=== PATIENT | female | born 2000 | race Caucasian/White ===

== ENCOUNTER 2019-02-01 02:11 | Emergency (ER) | payer BC ==
[2019-02-01] MEDS ORDERED: Famotidine IV* 10 MG/ML 2 ML (20 mg) ONE (02:16)
[2019-02-01] MEDS ORDERED: NS 0.9% 1000 ML** 2,000 ML IV ONE (02:18)
[2019-02-01] MEDS ORDERED: EPINEPHRINE 1 MG/ML 1 ML VIAL IM ONE (02:19)
[2019-02-01] MEDS ORDERED: Dexamethasone IV* 4 MG/ML 1 ML (4 MG) PO ONE (02:19)
[2019-02-01] MEDS ORDERED: diPHENhydraMINE IV* 50 MG/ML 1 ml VIAL (BENADRYL) SLOW PUSH ONE (02:19)
[2019-02-01] MEDS ORDERED: Famotidine IV* 10 MG/ML 2 ML (20 mg) IV SLOW PU ONE (02:20)
--- NOTE | 2019-02-01 02:33 | ED ---
Allergic Reaction/Systemic - HPI Summary HPI Summary: This pt is a 18 Y/O F presenting to [facility] with a CC of an allergic reaction to a drink with peaches in it. She states that she has an allergy to peaches and when she eats or drinks peaches her throat closes and she becomes SOB and lightheaded. She currently has pain associated with her throat tightening and rates it a 5/10 in severity. She states that the last time she had a reaction was years ago. She denies any fevers, chills, diaphoresis, abdominal pain, rashes, and N/V. She states no alleviating factors. She has a PMHx of an allergy to peaches. 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 Negative: Abdominal Pain, Diaphoresis, Nausea, Rash, Vomiting - Related Hx Possible Reaction To: Other: - peaches - Allergies/Home Medications Allergies/Adverse Reactions: Allergies Allergy/AdvReac Type Severity Reaction Status Date / Time zhou Allergy Anaphylatic Verified 02/01/19 02:32 Shock peach Allergy Anaphylatic Verified 02/01/19 02:32 Shock pineapple Allergy Anaphylatic Verified 02/01/19 02:32 Shock Home Medications: Home Medications SUMAtriptan TAB* [Imitrex TAB*] 50 mg PO DAILY PRN 02/01/19 [History Confirmed 02/01/19] PMH/Surg Hx/FS Hx/Imm Hx Previously Healthy: Yes Endocrine/Hematology History: Denies: Hx Diabetes Cardiovascular History: Denies: Hx Hypertension Respiratory History: Denies: Hx Asthma Sensory History: Denies: Hx Contacts or Glasses Opthamlomology History: Denies: Hx Contacts or Glasses - Surgical History Surgical History: None - Immunization History Immunizations Up to Date: Yes Infectious Disease History: No Infectious Disease History: Denies: Traveled Outside the [place] in Last 30 Days - Family History Known Family History: Positive: Cardiac Disease - Social History Occupation: Student - [employer] Lives: Dormitory/Roommates Alcohol Use: Occasionally Hx Substance Use: No - Pt states that she quit Substance Use Type: Reports: Marijuana Hx Tobacco Use: No Smoking Status (MU): Never Smoked Tobacco Household Exposure: No Review of Systems Negative: Fever, Chills, Skin Diaphoresis Negative: Chest Pain Positive: Shortness Of Breath, Other - throat tightening Negative: Abdominal Pain, Vomiting, Nausea Negative: Rash Negative: Headache All Other Systems Reviewed And Are Negative: Yes Physical Exam - Summary Physical Exam Summary: Appearance: Well-appearing, Well-nourished, lying in bed comfortably, No definite or ultimate stridor, repeatedly clearing her throat as if it is irritated Skin: Warm, dry, no obvious rash Eyes: sclera anicteric, no conjunctival pallor ENT: mucous membranes moist, pharynx appears normal Neck: Supple, nontender Respiratory: Clear to auscultation, no signs of respiratory distress Cardiovascular: Normal S1, S2. No murmurs. Normal distal pulses in tibial and radial bilaterally. Abdomen: Soft, nontender, normal active bowel sounds present Musculoskeletal: Normal, Strength/ROM Intact Neurological: A&Ox3, awake and alert, mentation is normal, speech is fluent and appropriate Psychiatric: affect is normal, does not appear anxious or depressed Triage Information Reviewed: Yes Vital Signs On Initial Exam: Initial Vitals Temp Pulse Resp BP Pulse Ox 97.5 F 106 20 124/89 100 02/01/19 02:14 02/01/19 02:14 02/01/19 02:14 02/01/19 02:14 02/01/19 02:14 Vital Signs Reviewed: Yes Diagnostics - Vital Signs Vital Signs Temp Pulse Resp BP Pulse Ox 02/01/19 02:14 97.5 F 106 20 124/89 100 - Laboratory Result Diagrams: 02/01/19 02:38 02/01/19 02:38 Lab Statement: Any lab studies that have been ordered have been reviewed, and results considered in the medical decision making process. Allergic Reaction Course/Dx - Course Course Of Treatment: This pt is a 18 Y/O F presenting to [facility] with a CC of an allergic reaction to a drink with peaches in it. She states that she has an allergy to peaches and when she eats or drinks peaches her throat closes and she becomes SOB and lightheaded. Her PE found that she has no definite or ultimate stridor, repeatedly clearing her throat as if it is irritated. She was treated for an allergic reaction and was given the following medications during her ED course: Decadron, Benadryl, Adrenalin, Pepcid, Potassium Chloride. Her Potassium was a 2.7 during her ED course. Pt reported feeling better and will be discharged home with a Dx of an allergic reaction. - Diagnoses Provider Diagnoses: Allergic reaction Discharge ED - Sign-Out/Discharge Documenting (check all that apply): Patient Departure - discharge Patient Received Moderate/Deep Sedation with Procedure: No - Discharge Plan Condition: Stable Disposition: HOME - Attestation Statements Document Initiated by Scribe: Yes Documenting Scribe: Garret Rodriguez Provider For Whom Scribe is Documenting (Include Credential): Ricardo Edwards MD Scribe Attestation: Garret Granados, scribed for Ricardo Edwards MD on 02/01/19 at 0446. Status of Scribe Document: Ready
[2019-02-01 02:49] LABS: Hematocrit 42 % (35-47); Hemoglobin 14.1 g/dL (12.0-16.0); Mean Corpuscular HGB Conc 33 g/dL (31-36); Mean Corpuscular Hemoglobin 29 pg (27-31); Mean Corpuscular Volume 86 fL (80-97); Mean Platelet Volume 8.6 fL (7.4-10.4); Platelet Count 293 10^3/uL (150-450); Red Blood Count 4.89 10^6 /uL (3.70-4.87); Red Cell Distribution Width 14 % (10-15); White Blood Count 12.6 10^3/uL (3.5-10.8)
[2019-02-01 03:05] LABS: BUN/Creatinine Ratio 19.3 (8-20); Blood Urea Nitrogen 17 mg/dL (6-24); CO2 Carbon Dioxide 23 mmol/L (22-32); Calcium 9.5 mg/dL (8.6-10.3); Chloride 108 mmol/L (101-111); EGFR African American 100.2 (>60); EGFR Non-African American 82.8 (>60); Glucose 176 mg/dL (70-100); Sodium 140 mmol/L (135-145)
[2019-02-01 03:07] LABS: ABS Basophils 0.1 10^3/ul (0-0.2); ABS Eosinophils 0.2 10^3/ul (0-0.6); ABS Lymphocytes 5.7 10^3/ul (1.0-4.8); ABS Monocytes 0.8 10^3/ul (0-0.8); ABS Neutrophils 5.9 10^3/ul (1.5-7.7); Anion Gap 9 mmol/L (2-11); Potassium 2.7 mmol/L (3.5-5.0)
[2019-02-01] MEDS ORDERED: Potassium Chlor TAB* 20 MEQ TAB.ER PO ONE (03:07)
[2019-02-01 03:13] LABS: HCG Pregnancy < 0.60 mIU/mL
[2019-02-01 03:34] LABS: Eosinophil % 1.2 %; Lymphocyte % 45.3 %; Nucleated Red Blood Cells % 0.1
[2019-02-01 05:20] VITALS: BP 142/89
== END 2019-02-01 05:17 | disposition home or self-care (01) ==
LOC: ED 02:11
DX: T78.1XXA Other adverse food reactions, not elsewhere classified, initial encounter (principal); R07.0 Pain in throat; Z91.018 Allergy to other foods; X58.XXXA Exposure to other specified factors, initial encounter
CPT/HCPCS: 36415; 80048; 84702; 85025; 85060; 96361; 96372; 96374; 96375; 99283; A9270-GY; J1100; J1200

== ENCOUNTER 2019-02-09 20:27 | Emergency (ER) | payer BC ==
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
[2019-02-09] MEDS ORDERED: Ondansetron ODT TAB* 4 MG PO ONE (21:28)
[2019-02-09] MEDS ORDERED: SUMAtriptan TAB* 100 MG PO ONE (21:28)
[2019-02-09 21:39] LABS: ABS Basophils 0.1 10^3/ul (0-0.2); ABS Lymphocytes 2.2 10^3/ul (1.0-4.8); ABS Monocytes 0.5 10^3/ul (0-0.8); ABS Neutrophils 4.7 10^3/ul (1.5-7.7); Eosinophil % 0.5 %; Hematocrit 44 % (35-47); Hemoglobin 14.9 g/dL (12.0-16.0); Lymphocyte % 29.2 %; Mean Corpuscular HGB Conc 34 g/dL (31-36); Mean Corpuscular Hemoglobin 30 pg (27-31); Mean Corpuscular Volume 86 fL (80-97); Mean Platelet Volume 7.7 fL (7.4-10.4); Nucleated Red Blood Cells % 0.1; Platelet Count 244 10^3/uL (150-450); Red Blood Count 5.06 10^6 /uL (3.70-4.87); Red Cell Distribution Width 14 % (10-15); White Blood Count 7.6 10^3/uL (3.5-10.8)
[2019-02-09 21:48] LABS: Urine Appearance Clear; Urine Bilirubin Negative (Negative); Urine Blood Negative (Negative); Urine Color Yellow; Urine Glucose Negative (Negative); Urine Ketones Trace (Negative); Urine Nitrite Negative (Negative); Urine Protein Negative (Negative); Urine Specific Gravity 1.025 (1.010-1.030); Urine Urobilinogen Negative (Negative)
[2019-02-09 21:52] LABS: Urine Benzodiazepine Screen None Detected (None Detect); Urine Opiates Screen None Detected (None Detect)
[2019-02-09 21:53] VITALS: BP 125/106
[2019-02-09 21:56] LABS: ALT 14 U/L (7-52); AST 17 U/L (13-39); Albumin/Globulin Ratio 1.9 (1-3); Alkaline Phosphatase 66 U/L (34-104); Anion Gap 8 mmol/L (2-11); BUN/Creatinine Ratio 18.8 (8-20); Blood Urea Nitrogen 15 mg/dL (6-24); CO2 Carbon Dioxide 28 mmol/L (22-32); Calcium 10.2 mg/dL (8.6-10.3); Chloride 104 mmol/L (101-111); EGFR African American 111.8 (>60); EGFR Non-African American 92.4 (>60); Globulin 2.6 g/dL (2-4); Glucose 83 mg/dL (70-100); Potassium 3.5 mmol/L (3.5-5.0); Sodium 140 mmol/L (135-145); Total Protein 7.6 g/dL (6.4-8.9)
[2019-02-09 22:04] LABS: HCG Pregnancy < 0.60 mIU/mL
[2019-02-09 22:08] LABS: Acetaminophen < 15 mcg/mL; Alcohol < 10 mg/dL (<10); Salicylate < 2.50 mg/dL (<30)
== END 2019-02-09 22:32 | disposition home or self-care (01) ==
LOC: ED 20:27
DX: F13.10 Sedative, hypnotic or anxiolytic abuse, uncomplicated (principal); R11.0 Nausea; F41.9 Anxiety disorder, unspecified; G43.909 Migraine, unspecified, not intractable, without status migrainosus; Z91.018 Allergy to other foods
CPT/HCPCS: 36415; 80053; 80307; 80320; 80329; 81003; 83605; 84702; 85025; 99284; A9270-GY; G0480

== ENCOUNTER 2019-02-16 18:06 | Emergency (ER) | payer BC ==
--- NOTE | 2019-02-16 20:06 | ED ---
Neurological HPI - HPI Summary HPI Summary: This patient is a 18 year old F presenting to ED with a chief complaint of seizure at 1700 today. Patient does not remember completely what happened. Patient felt alright prior to the episode and had not been feeling sick today. Patient was doing homework at a table. She states her music got lower in pitch and she felt everything change around her. She texted her friend who was upstairs, and then she woke up on the floor. Her friend Shad was next to her. He reports the seizure was self-limited. He describes she had a generalized tonic-clonic seizure lasting a couple of minutes. He reports she was confused afterwards, consistent with the post-ictal period. He made sure to lay her on her side and keep her airway clear and otherwise kept her safe during the seizure episode. After the episode, the patient had a headache, which is still present. Patient reports mild abdominal pain and nausea and tiredness. Patient s friend brought her to the ED. Patient reports she does not normally have seizures, but has these symptoms due to withdrawal from Xanax. Patient states she started taking Xanax in high school and reports getting it from her friend s prescription. She reports she used to take 1-2mg every other day. She states she was self-medicating for anxiety. Patient only had seizures when she tried to go cold turkey off the Xanax. Patient was seen here one week ago for a Xanax overdose and was told to see [facility]. Patient was prescribed Fluoxetine and Klonopin by [facility] on 02/11/19. She reports the medication made her slur her speech and tired. However, these symptoms improved throughout last week. She took the medications as prescribed until today as she forgot to take her Klonopin today. She last took Klonopin at 2000 last night. She does not remember the dosage. Her prescription runs out in two days and she has an appointment scheduled for [facility] then to check-up and refill. She reports her anxiety is under control and only has mild flares up every now and then. Patient does not want to tell her parents about this since she is worried they would be judgmental and kick her out of the house. The patient rates the pain 0/10 in severity. Symptoms aggravated by nothing. Symptoms alleviated by nothing. - History of Current Complaint Chief Complaint: EDSeizure Stated Complaint: POSSIBLE SEIZURE Time Seen by Provider: 02/16/19 19:53 Hx Obtained From: Patient, Other: - Friend Hx Last Menstrual Period: 01/24/19 Onset/Duration: Sudden Onset, Started hours ago - At 1700 today, Resolved Onset Severity: Mild Current Severity: Mild Seizure Severity: Self Limited Number of Seizures: 1 Neurological Deficit Location: Generalized Pain Intensity: 0 Pain Scale Used: 0-10 Numeric Seizure Character: Generalized, Total-Clonic Aggravating: Nothing Alleviating: Nothing Associated Signs and Symptoms: Positive: Headache, Seizure, Nausea/Vomiting, Change in Medication, Anxiety Related Hx: Seizure - Allergy/Home Medications Allergies/Adverse Reactions: Allergies Allergy/AdvReac Type Severity Reaction Status Date / Time zhou Allergy Anaphylatic Verified 02/16/19 18:12 Shock peach Allergy Anaphylatic Verified 02/16/19 18:12 Shock pineapple Allergy Anaphylatic Verified 02/16/19 18:12 Shock Home Medications: Home Medications FLUoxetine CAP* [Prozac CAP*] 10 mg PO DAILY 02/16/19 [History Confirmed ] clonazePAM TAB(*) [Klonopin TAB(*)] 0.5 mg PO BID 02/16/19 [History Confirmed ] PMH/Surg Hx/FS Hx/Imm Hx Previously Healthy: No Endocrine/Hematology History: Denies: Hx Diabetes Cardiovascular History: Denies: Hx Hypertension Respiratory History: Denies: Hx Asthma Sensory History: Denies: Hx Contacts or Glasses Opthamlomology History: Denies: Hx Contacts or Glasses Neurological History: Reports: Hx Migraine Psychiatric History: Reports: Hx Anxiety - not formally diagnosed or treated, but pt states she has anxiety , Other Psychiatric Issues/Disorders - hx cutting in past, last in 2018 Denies: Hx Eating Disorder, Hx of Violent Episodes Against Others - Surgical History Surgery Procedure, Year, and Place: none Infectious Disease History: No Infectious Disease History: Denies: Traveled Outside the [place] in Last 30 Days - Family History Known Family History: Positive: Cardiac Disease, Other - no hx of suicide in "blood relatives",but uncle "not blood related" - Social History Alcohol Use: Occasionally Hx Substance Use: Yes Substance Use Type: Reports: Marijuana, Other - xanax 02/08/19 at 1630pm Hx Tobacco Use: No Smoking Status (MU): Never Smoked Tobacco Review of Systems Positive: Abdominal Pain, Vomiting, Nausea Neurological: Other - Tiredness Positive: Headache All Other Systems Reviewed And Are Negative: Yes Physical Exam - Summary Physical Exam Summary: Appearance: Well-appearing, Well-nourished, lying in bed comfortable Skin: Warm, dry, no obvious rash Eyes: sclera anicteric, no conjunctival pallor ENT: mucous membranes moist Neck: deferred Respiratory: No signs of respiratory distress Cardiovascular: Appears well perfused, pulses are nml Abdomen: deferred Musculoskeletal: Moving all 4 extremities without obvious discomfort Neurological: Awake and alert, mentation is normal, speech is fluent and appropriate Psychiatric: affect is normal, does not appear anxious or depressed Triage Information Reviewed: Yes Vital Signs On Initial Exam: Initial Vitals Temp Pulse Resp BP Pulse Ox 97.9 F 80 16 121/78 96 02/16/19 18:08 02/16/19 18:08 02/16/19 18:08 02/16/19 18:08 02/16/19 18:08 Vital Signs Reviewed: Yes Procedures - Sedation Patient Received Moderate/Deep Sedation with Procedure: No Diagnostics - Vital Signs Vital Signs Temp Pulse Resp BP Pulse Ox 02/16/19 18:08 97.9 F 80 16 121/78 96 - Laboratory Lab Statement: Any lab studies that have been ordered have been reviewed, and results considered in the medical decision making process. Course/Dx - Course Course Of Treatment: This patient is a 18 year old F presenting to ED with a chief complaint of self-limited seizure at 1700 today. In the ED course, patient received Klonopin. I educated the patient on the importance of following her Klonopin prescription. Patient will be discharged home with dx of recurrent seizures. Patient understands and agrees with this plan. - Diagnoses Provider Diagnoses: Recurrent seizures Discharge ED - Sign-Out/Discharge Documenting (check all that apply): Patient Departure - Discharge - Discharge Plan Condition: Good Disposition: HOME Patient Education Materials: Recurrent Seizures in Adults (ED) [facility] Dennis FAJARD[facility] [Primary Care Provider] - (as scheduled) Additional Instructions: I have given you 1 mg of klonopin tonight, which is probably a bit more than you are taking. I would like you also to take your evening dose tonight before you turn in for the night. In the short run it's ok to have a little extra in your system. When you talk to the folks at [facility] make sure to tell them about what happened, I wouldn't be surprised if they suggest an increase in your dose for now since even missing 1 dose resulted in a seizure. You have to be very careful about this, and for sure you cannot drive until you are through all this. - Billing Disposition and Condition Condition: GOOD Disposition: Home - Attestation Statements Document Initiated by Brandonibe: Yes Documenting Scribe: Jose Garcia Provider For Whom Javy is Documenting (Include Credential): Ricardo Edwards MD Scribe Attestation: I, Jose Garcia, scribed for Ricardo Edwards MD on 02/24/19 at 0021. Scribe Documentation Reviewed: Yes Provider Attestation: The documentation as recorded by the Jose fitzpatrick accurately reflects the service I personally performed and the decisions made by me, Ricardo Edwards MD Status of Scribe Document: Viewed
[2019-02-16] MEDS ORDERED: clonazePAM TAB(*) 1 MG PO ONE (20:17)
[2019-02-16 20:39] VITALS: BP 99/64
== END 2019-02-16 20:35 | disposition home or self-care (01) ==
LOC: ED 18:06
DX: G40.909 Epilepsy, unspecified, not intractable, without status epilepticus (principal); R51 Headache; R10.9 Unspecified abdominal pain; R11.0 Nausea; R53.83 Other fatigue; Z91.018 Allergy to other foods
CPT/HCPCS: 99282; A9270-GY

== ENCOUNTER 2019-03-14 00:49 | Emergency (ER) | payer BC ==
[2019-03-14] MEDS ORDERED: levETIRAcetam 1000MG IVPREMIX* 1,000 MG/100 ML BAG IVPB ONE (01:03)
--- NOTE | 2019-03-14 01:06 | ED ---
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 During the first seizure, male friend states he heard a thumb, saw patient shaking semi violently on the ground for 2 minutes. Male java tech states he put a cushion under her head and turned her to her side. He states that patient lost consciousness for 2-3 minutes. He states patient propped herself against the wall, then 30 seconds later, had another seizure lasting 1 minute, then male java tech called EMS. EMS states that patient was slightly postictal upon EMS arrival to scene. Patient states she feels dizzy now. The patient rates the pain 8/10 in severity. Symptoms aggravated by nothing. Symptoms alleviated by nothing. Patient was seen here on 02/19/19 for similar. States she has been taking her medications daily as prescribed. States she takes clonazepam 0.5 mg, gabapentin 200 mg, and fluoxetine 40 mg. States she hasn't followed up with neurology yet. - History of Current Complaint Stated Complaint: SEIZURE PER EMS Time Seen by Provider: 03/14/19 00:55 Hx Obtained From: Patient, Family/Customer Professional - male java tech Onset/Duration: Started minutes ago, Resolved Timing: Intermittent Episodes Lasting: - 1-2 minutes Current Severity: Severe Pain Intensity: 8 Pain Scale Used: 0-10 Numeric Aggravating: Nothing Alleviating: Nothing - Allergy/Home Medications Allergies/Adverse Reactions: Allergies Allergy/AdvReac Type Severity Reaction Status Date / Time latex Allergy BURNING Verified 03/12/19 11:02 SENSATION zhou Allergy Anaphylatic Verified 03/12/19 11:02 Shock peach Allergy Anaphylatic Verified 03/12/19 11:02 Shock pineapple Allergy Anaphylatic Verified 03/12/19 11:02 Shock Home Medications: Home Medications Gabapentin 600 mg PO DAILY 03/14/19 [History Confirmed 03/14/19] PMH/Surg Hx/FS Hx/Imm Hx Endocrine/Hematology History: Denies: Hx Diabetes Cardiovascular History: Denies: Hx Hypertension, Hx Pacemaker/ICD Respiratory History: Denies: Hx Asthma History: Denies: Hx Renal Disease Sensory History: Denies: Hx Contacts or Glasses, Hx Hearing Aid Opthamlomology History: Denies: Hx Contacts or Glasses Neurological History: Reports: Hx Migraine Psychiatric History: Reports: Hx Anxiety - not formally diagnosed or treated, but pt states she has anxiety , Hx Panic Disorder - ANXIETY, Other Psychiatric Issues/Disorders - hx cutting in past, last in 2018 Denies: Hx Eating Disorder, Hx of Violent Episodes Against Others - Surgical History Surgery Procedure, Year, and Place: LAZY EYE SURGERY CHILD Infectious Disease History: No Infectious Disease History: Denies: Traveled Outside the [place] in Last 30 Days - Family History Known Family History: Positive: Cardiac Disease, Other - no hx of suicide in "blood relatives",but uncle "not blood related" - Social History Alcohol Use: Occasionally Hx Substance Use: Yes Substance Use Type: Reports: Marijuana, Other - xanax 02/08/19 at 1630pm Hx Tobacco Use: No Smoking Status (MU): Never Smoked Tobacco Review of Systems Negative: Fever Neurological: Other - seizure, dizziness All Other Systems Reviewed And Are Negative: Yes Physical Exam - Summary Physical Exam Summary: Appearance: Well-appearing, Well-nourished, lying in bed comfortable Skin: Warm, dry, no obvious rash Eyes: sclera anicteric, no conjunctival pallor ENT: mucous membranes moist Neck: deferred Respiratory: No signs of respiratory distress Cardiovascular: Appears well perfused, pulses are nml Abdomen: deferred Musculoskeletal: Moving all 4 extremities without obvious discomfort Neurological: Awake and alert, mentation is normal, speech is fluent and appropriate Psychiatric: affect is normal, does not appear anxious or depressed Triage Information Reviewed: Yes Vital Signs On Initial Exam: Initial Vitals Temp Pulse Resp BP Pulse Ox 99 F 70 17 111/70 98 03/14/19 00:51 03/14/19 00:51 03/14/19 00:51 03/14/19 00:51 03/14/19 00:51 Vital Signs Reviewed: Yes Procedures - Sedation Patient Received Moderate/Deep Sedation with Procedure: No Diagnostics - Vital Signs Vital Signs Temp Pulse Resp BP Pulse Ox 03/14/19 00:51 99 F 70 17 111/70 98 - Laboratory Result Diagrams: 03/14/19 01:09 03/14/19 01:09 Lab Statement: Any lab studies that have been ordered have been reviewed, and results considered in the medical decision making process. NIH Scale - NIH Scale Level of Consciousness: Alert/Keenly Responsive Ask Patient the Month and His/Her Age: Both Correct Ask Pt to Open/Close Eyes and Transit Mixer Driver/Release Non-Paretic Hand: Both Correctly Best Gaze (Only Horizontal Eye Movement): Normal Visual Field Testing: No Visual Loss Facial Paresis-Pt to Smile & Close Eyes or Grimace Symmetry: Normal/Symmetrical Motor Function - Right Arm: No Drift-Holds 10 Seconds Motor Function - Left Arm: No Drift-Holds 10 Seconds Motor Function - Right Leg: No Drift-Holds 10 Seconds Motor Function - Left Leg: No Drift-Holds 10 Seconds Limb Ataxia-Must be out of Proportion to Weakness Present: Absent Sensory (Use Pinprick to Test Arms/Legs/Trunk/Face): Normal Best Language (Describe Picture, Name Items): No Aphasia Dysarthria (Read Several Words): Normal Extinction and Inattention: No Abnormality Total Score: 0 Course/Dx - Course Course Of Treatment: 18 year old F brought in by EMS presenting to 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 EMS states that patient was slightly postictal upon EMS arrival to scene. Patient states she feels dizzy now. Patient was seen here on 02/19/19 for similar. States she has been taking her medications daily as prescribed. States she hasn't followed up with neurology yet. Bloodwork results with no significant abnormalities. Urinalysis results with no significant abnormalities. In the ED course, the patient was given Keppra. The last time I saw her the seizure coincided with abruptly stopping her klonopin, but the present seizure is unprovoked so I am starting her on Keppra until she can be seen by neurology. She will be discharged home with a Dx of Sz due to her normal PE and labratory results. She will be sent home with 60 tabs of Keppra and instructed to take the medication twice daily. - Diagnoses Provider Diagnoses: Seizure Discharge ED - Sign-Out/Discharge Documenting (check all that apply): Patient Departure - discharge - Discharge Plan Condition: Good Disposition: HOME Prescriptions: levETIRAcetam TAB* [Keppra TAB*] 500 mg PO BID #60 tab Patient Education Materials: New-Onset Seizure in Adults (ED) Referrals: Antonella Winters NP [Primary Care Provider] - 3 Days - Billing Disposition and Condition Condition: GOOD Disposition: Home - Attestation Statements Document Initiated by Scribe: Yes Documenting Scribe: Garret Butts Provider For Whom Scribe is Documenting (Include Credential): Ricardo Edwards MD Scribe Attestation: IAriana Marco DiSanto, scribed for Ricardo Edwards MD on 03/14/19 at 1904. Scribe Documentation Reviewed: Yes Provider Attestation: The documentation as recorded by the gustaboibshaheed, Garret Butts accurately reflects the service I personally performed and the decisions made by me, Ricardo Edwards MD Status of Scribe Document: Viewed
[2019-03-14 01:20] LABS: ABS Basophils 0.1 10^3/ul (0-0.2); ABS Lymphocytes 1.8 10^3/ul (1.0-4.8); ABS Monocytes 0.5 10^3/ul (0-0.8); ABS Neutrophils 4.4 10^3/ul (1.5-7.7); Eosinophil % 0.5 %; Hematocrit 37 % (35-47); Hemoglobin 12.6 g/dL (12.0-16.0); Lymphocyte % 26.5 %; Mean Corpuscular HGB Conc 34 g/dL (31-36); Mean Corpuscular Hemoglobin 29 pg (27-31); Mean Corpuscular Volume 85 fL (80-97); Mean Platelet Volume 7.4 fL (7.4-10.4); Nucleated Red Blood Cells % 0.1; Platelet Count 303 10^3/uL (150-450); Red Blood Count 4.33 10^6 /uL (3.70-4.87); Red Cell Distribution Width 14 % (10-15); White Blood Count 6.8 10^3/uL (3.5-10.8)
[2019-03-14 01:33] LABS: ALT 13 U/L (7-52); AST 17 U/L (13-39); Albumin 4.3 g/dL (3.2-5.2); Albumin/Globulin Ratio 1.5 (1-3); Alkaline Phosphatase 62 U/L (34-104); Anion Gap 6 mmol/L (2-11); BUN/Creatinine Ratio 22.1 (8-20); Blood Urea Nitrogen 21 mg/dL (6-24); CO2 Carbon Dioxide 30 mmol/L (22-32); Chloride 102 mmol/L (101-111); EGFR African American 91.7 (>60); EGFR Non-African American 75.8 (>60); Globulin 2.8 g/dL (2-4); Glucose 86 mg/dL (70-100); Potassium 3.9 mmol/L (3.5-5.0); Sodium 138 mmol/L (135-145); Total Protein 7.1 g/dL (6.4-8.9)
[2019-03-14 01:51] LABS: Urine Appearance Clear; Urine Bacteria Absent (Absent); Urine Bilirubin Negative (Negative); Urine Blood Negative (Negative); Urine Color Yellow; Urine Glucose Negative (Negative); Urine Ketones Trace (Negative); Urine Nitrite Negative (Negative); Urine Protein Negative (Negative); Urine Red Blood Cell Trace(0-2/hpf) (Absent); Urine Specific Gravity 1.021 (1.010-1.030); Urine Squamous Epithelial Cell Present (Absent); Urine Urobilinogen Negative (Negative); Urine White Blood Cell Trace(0-5/hpf) (Absent)
[2019-03-14 01:57] LABS: Alcohol < 10 mg/dL (<10)
[2019-03-14 01:59] LABS: Urine Benzodiazepine Screen None Detected (None Detect); Urine Opiates Screen None Detected (None Detect)
[2019-03-14 02:37] VITALS: BP 94/64
== END 2019-03-14 02:39 | disposition home or self-care (01) ==
LOC: ED 00:49
DX: G40.909 Epilepsy, unspecified, not intractable, without status epilepticus (principal); Z79.899 Other long term (current) drug therapy; Z91.040 Latex allergy status; Z91.018 Allergy to other foods
CPT/HCPCS: 36415; 80053; 80307; 80320; 81003; 81015; 85025; 87086; 96365; 99283; G0480; J1953

== ENCOUNTER 2019-03-14 13:36 | Emergency (ER) | payer BC ==
[2019-03-14 15:01] LABS: ABS Lymphocytes 1.1 10^3/ul (1.0-4.8); ABS Monocytes 0.4 10^3/ul (0-0.8); ABS Neutrophils 2.8 10^3/ul (1.5-7.7); Hematocrit 37 % (35-47); Hemoglobin 12.8 g/dL (12.0-16.0); Mean Corpuscular HGB Conc 34 g/dL (31-36); Mean Corpuscular Hemoglobin 29 pg (27-31); Mean Corpuscular Volume 86 fL (80-97); Mean Platelet Volume 7.7 fL (7.4-10.4); Platelet Count 287 10^3/uL (150-450); Red Blood Count 4.35 10^6 /uL (3.70-4.87); Red Cell Distribution Width 14 % (10-15); White Blood Count 4.3 10^3/uL (3.5-10.8)
[2019-03-14 15:10] LABS: ALT 13 U/L (7-52); AST 17 U/L (13-39); Albumin 4.2 g/dL (3.2-5.2); Albumin/Globulin Ratio 1.6 (1-3); Alkaline Phosphatase 59 U/L (34-104); Anion Gap 6 mmol/L (2-11); BUN/Creatinine Ratio 20.7 (8-20); Blood Urea Nitrogen 18 mg/dL (6-24); CO2 Carbon Dioxide 29 mmol/L (22-32); Calcium 9.7 mg/dL (8.6-10.3); Chloride 106 mmol/L (101-111); EGFR African American 101.5 (>60); EGFR Non-African American 83.9 (>60); Globulin 2.7 g/dL (2-4); Glucose 80 mg/dL (70-100); Potassium 3.8 mmol/L (3.5-5.0); Sodium 141 mmol/L (135-145); Total Protein 6.9 g/dL (6.4-8.9)
[2019-03-14] MEDS ORDERED: levETIRAcetam TAB* 500 MG PO ONE (15:13)
[2019-03-14 15:14] LABS: HCG Pregnancy < 0.60 mIU/mL
[2019-03-14 15:32] LABS: TSH (Thyroid Stimulating Horm) 0.73 mcIU/mL (0.34-5.60)
--- NOTE | 2019-03-14 17:39 | ED ---
Neurological HPI - HPI Summary HPI Summary: 18 year old female presents to the ED by EMS brought in by her teacher with a chief complaint of seizure episode during class [employer]. Patient had a seizure last night and presented to [facility] and was later discharged. Her teacher reports that she went to class today but right when she walked in and sat down, her whole body started trembling. The trembling got more and more severe, and then she slipped out of her chair and fell on the floor. The whole episode lasted 40 seconds. Per patient, the last thing she remembers before the episode was walking into the classroom. The first thing she remembered was waking up on the floor. Patient reports syncope. Afterwards, she felt dizziness, confusion, and weakness in her lower extremities bilaterally. She denies incontinence or tongue biting. She has a history of 8 seizures and anxiety. Patient does not smoke tobacco or drink alcohol. She smokes marijuana occasionally. Medications reviewed. Allergies noted. - History of Current Complaint Chief Complaint: EDSeizure Stated Complaint: SEIZURE PER EMS Time Seen by Provider: 03/14/19 13:56 Hx Obtained From: Patient, Other: - teacher Hx Last Menstrual Period: 01/24/19 Onset/Duration: Sudden Onset Timing: Sudden Onset Onset Severity: Moderate Current Severity: Moderate Seizure Severity: Moderate Number of Seizures: 1 Neurological Deficit Location: Generalized Pain Intensity: 8 Pain Scale Used: 0-10 Numeric Character: Weak, Dizzy, Motor Weakness, Sensory Loss, Responsiveness Syncope Timin sec Episode Lasting: Seconds/Minutes Syncope Context: Witnessed, Loss of Consciousness: Yes, Activity - tremble, At Rest Syncope Location: All Extremities Seizure Character: Generalized Aggravating: Unknown Alleviating: Unknown Associated Signs and Symptoms: Positive: Weakness, Loss of Consciousness, Dizziness, Seizure Related Hx: Seizure - 7x - Allergy/Home Medications Allergies/Adverse Reactions: Allergies Allergy/AdvReac Type Severity Reaction Status Date / Time latex Allergy BURNING Verified 03/12/19 11:02 SENSATION zhou Allergy Anaphylatic Verified 03/12/19 11:02 Shock peach Allergy Anaphylatic Verified 03/12/19 11:02 Shock pineapple Allergy Anaphylatic Verified 03/12/19 11:02 Shock Home Medications: Home Medications Potassium 99 mg PO DAILY 03/14/19 [History Confirmed 03/14/19] PMH/Surg Hx/FS Hx/Imm Hx Endocrine/Hematology History: Denies: Hx Diabetes Cardiovascular History: Denies: Hx Hypertension, Hx Pacemaker/ICD Respiratory History: Denies: Hx Asthma History: Denies: Hx Renal Disease Sensory History: Denies: Hx Contacts or Glasses, Hx Hearing Aid Opthamlomology History: Denies: Hx Contacts or Glasses Neurological History: Reports: Hx Migraine Psychiatric History: Reports: Hx Anxiety - not formally diagnosed or treated, but pt states she has anxiety , Hx Panic Disorder - ANXIETY, Other Psychiatric Issues/Disorders - hx cutting in past, last in 2018 Denies: Hx Eating Disorder, Hx of Violent Episodes Against Others - Surgical History Surgery Procedure, Year, and Place: LAZY EYE SURGERY CHILD - Immunization History Immunizations Up to Date: Yes Infectious Disease History: No Infectious Disease History: Denies: Traveled Outside the [place] in Last 30 Days - Family History Known Family History: Positive: Cardiac Disease, Other - no hx of suicide in "blood relatives",but uncle "not blood related" - Social History Alcohol Use: Occasionally Hx Substance Use: Yes Substance Use Type: Reports: Marijuana, Other Hx Tobacco Use: No Smoking Status (MU): Never Smoked Tobacco Review of Systems Negative: Fever ENT: Negative - tongue bite negative Negative: incontinence Neurological: Other - trembling full body Positive: Weakness - lower extremities, Syncope All Other Systems Reviewed And Are Negative: Yes Physical Exam - Summary Physical Exam Summary: Constitutional: Well-developed, Well-nourished, Drowsy. Answers questions appropriately. (-) Distressed. Skin: Warm, Dry HENT: Normocephalic; Atraumatic Eyes: Conjunctiva normal Neck: Musculoskeletal ROM normal neck. (-) JVD, (-) Stridor, (-) Tracheal deviation Cardio: Rhythm regular, rate normal, Heart sounds normal; Intact distal pulses; Radial pulses are 2+ and symmetric. (-) Murmur Pulmonary/Chest wall: Effort normal. (-) Respiratory distress, (-) Wheezes, (-) Rales Abd: Soft, (-) tenderness, (-) Distension, (-) Guarding, (-) Rebound Musculoskeletal: (-) Edema Lymph: (-) Cervical adenopathy Neuro: Alert, Oriented x3. Bilateral lower extremity weakness, but patients effort was questionable. Psych: Mood and affect Normal Triage Information Reviewed: Yes Vital Signs On Initial Exam: Initial Vitals Temp Pulse Resp BP Pulse Ox 98.2 F 71 16 112/68 99 11/01/19 13:38 03/14/19 13:38 03/14/19 13:38 03/14/19 13:38 03/14/19 13:38 Vital Signs Reviewed: Yes - [place] Coma Scale Best Eye Response: 4 - Spontaneous Best Motor Response: 6 - Obeys Commands Best Verbal Response: 5 - Oriented Coma Scale Total: 15 Procedures - Sedation Patient Received Moderate/Deep Sedation with Procedure: No Diagnostics - Vital Signs Vital Signs Temp Pulse Resp BP Pulse Ox 03/14/19 13:38 98.2 F 71 16 112/ 99 - Laboratory Lab Results: Lab Results 03/14/19 03/14/19 Range/Units 14:31 14:31 WBC 4.3 (3.5-10.8) 10^3/uL RBC 4.35 (3.70-4.87) 10^6 /uL Hgb 12.8 (12.0-16.0) g/dL Hct 37 (35-47) % MCV 86 (80-97) fL MCH 29 (27-31) pg MCHC 34 (31-36) g/dL RDW 14 (10-15) % Plt Count 287 (150-450) 10^3/uL MPV 7.7 (7.4-10.4) fL Neut % (Auto) 64.9 % Lymph % (Auto) 25.0 % Steele % (Auto) 8.2 % Eos % (Auto) 1.0 % Baso % (Auto) 0.9 % Absolute Neuts (auto) 2.8 (1.5-7.7) 10^3/ul Absolute Lymphs (auto) 1.1 (1.0-4.8) 10^3/ul Absolute Monos (auto) 0.4 (0-0.8) 10^3/ul Absolute Eos (auto) 0.0 (0-0.6) 10^3/ul Absolute Basos (auto) 0.0 (0-0.2) 10^3/ul Absolute Nucleated RBC 0.0 10^3/ul Nucleated RBC % 0.0 Sodium 141 (135-145) mmol/L Potassium 3.8 (3.5-5.0) mmol/L Chloride 106 (101-111) mmol/L Carbon Dioxide 29 (22-32) mmol/L Anion Gap 6 (2-11) mmol/L BUN 18 (6-24) mg/dL Creatinine 0.87 (0.51-0.95) mg/dL Est GFR ( Amer) 101.5 (>60) Est GFR (Non-Af Amer) 83.9 (>60) BUN/Creatinine Ratio 20.7 H (8-20) Glucose 80 (70-100) mg/dL Calcium 9.7 (8.6-10.3) mg/dL Total Bilirubin 0.40 (0.2-1.0) mg/dL AST 17 (13-39) U/L ALT 13 (7-52) U/L Alkaline Phosphatase 59 (34-104) U/L Total Protein 6.9 (6.4-8.9) g/dL Albumin 4.2 (3.2-5.2) g/dL Globulin 2.7 (2-4) g/dL Albumin/Globulin Ratio 1.6 (1-3) TSH 0.73 (0.34-5.60) mcIU/mL Beta HCG, Quant < 0.60 mIU/mL Result Diagrams: 03/14/19 14:31 03/14/19 14:31 Lab Statement: Any lab studies that have been ordered have been reviewed, and results considered in the medical decision making process. Re-Evaluation - Re-Evaluation 1 Re-Evaluation Time: 17:53 Change: Improved Comment: Patient is walking better. She was offered admission but declined it. She will buy a walker later. Course/Dx - Course Course Of Treatment: Patient is here with a seizure that occurred during class. Patient's had worse the past month and was seen last night. Patient was started on Keppra but did not fill her prescription. Patient had extremity weakness which is typical for her following a seizure. Patient had blood performed which was at her baseline. Neurology was called and they recommended continuing the Right at current dose. Patient is given a dose here. Patient was monitored until she was safe for discharge. Patient was offered admission for her difficulty walking but declined. - Diagnoses Provider Diagnoses: Seizure - Physician Notifications Discussed Care Of Patient With: Alejandro Shaver - Neuro Time Discussed With Above Provider: 13:50 Instructed by Provider To: Other - Continue keppra. Give to neurology for follow up. Discharge ED - Sign-Out/Discharge Documenting (check all that apply): Patient Departure - home - Discharge Plan Condition: Stable Disposition: HOME Patient Education Materials: Recurrent Seizures in Adults (ED) Referrals: Alejandro Shaver MD [Medical Doctor] - Antonella Winters NP [Primary Care Provider] - Additional Instructions: Please get your Keppra prescription filled today and started tonight Please return if you have slurred speech, one-sided weakness, change in vision, seizures that do not get better, or any other concerning symptoms Please follow up with the neurologist in 1-3 days - Billing Disposition and Condition Condition: STABLE Disposition: Home - Attestation Statements Document Initiated by Scribe: Yes Documenting Scribe: Kilo Fisher Provider For Whom Javy is Documenting (Include Credential): Obdulio Mazariegos MD. Scribe Attestation: Kilo Granados scribed for Obdulio Mazariegos MD. on 03/14/19 at 1828. Scribe Documentation Reviewed: Yes Provider Attestation: The documentation as recorded by the scribeKilo accurately reflects the service I personally performed and the decisions made by Obdulio gregory MD. Status of Scribe Document: Viewed
[2019-03-14 18:17] VITALS: BP 95/66
== END 2019-03-14 15:38 | disposition home or self-care (01) ==
LOC: ED 13:36
DX: R56.9 Unspecified convulsions (principal); Z91.040 Latex allergy status
CPT/HCPCS: 36415; 80053; 80177; 84443; 84702; 85025; 99283; A9270-GY

== ENCOUNTER 2019-03-17 14:43 | Emergency (ER) | payer BC ==
[2019-03-17 15:08] LABS: ABS Basophils 0.1 10^3/ul (0-0.2); ABS Lymphocytes 1.6 10^3/ul (1.0-4.8); ABS Monocytes 0.5 10^3/ul (0-0.8); ABS Neutrophils 3.8 10^3/ul (1.5-7.7); Eosinophil % 0.7 %; Hematocrit 38 % (35-47); Hemoglobin 12.6 g/dL (12.0-16.0); Lymphocyte % 26.6 %; Mean Corpuscular HGB Conc 33 g/dL (31-36); Mean Corpuscular Hemoglobin 29 pg (27-31); Mean Corpuscular Volume 87 fL (80-97); Mean Platelet Volume 7.7 fL (7.4-10.4); Nucleated Red Blood Cells % 0.1; Platelet Count 263 10^3/uL (150-450); Red Blood Count 4.41 10^6 /uL (3.70-4.87); Red Cell Distribution Width 15 % (10-15)
[2019-03-17 15:16] LABS: INR 1.15 (0.82-1.09)
[2019-03-17 15:48] LABS: Albumin 4.4 g/dL (3.2-5.2); Albumin/Globulin Ratio 1.6 (1-3); BUN/Creatinine Ratio 19.8 (8-20); Calcium 9.5 mg/dL (8.6-10.3); EGFR African American 102.9 (>60); Globulin 2.7 g/dL (2-4); Magnesium 2.1 mg/dL (1.9-2.7); Potassium 3.8 mmol/L (3.5-5.0); Total Bilirubin 0.3 mg/dL (0.2-1.0); Total Protein 7.1 g/dL (6.4-8.9)
--- NOTE | 2019-03-17 15:59 | ED ---
Neurological HPI - HPI Summary HPI Summary: Patient is a 18 y/o F presenting to the ED for a chief complaint of seizure that occurred on 03/17/19. 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 The seizure was witnessed by her professor and lasted for 3-4 minutes. Patient slid out of her chair while in class and was shaking. She was moved out of the chair by classmates and could not speak during the seizure. Patient admits seizures almost daily since the initial onset of seizure one month ago. Prior to this episode, patient last had a seizure on 03/15/19 for which she was seen at [facility]. Patient states that before a seizure, she has dizziness with a "room spinning" sensation. Patient reports that on 03/17/19, patient also felt "hot" before the seizure which she says in unusual. After a seizure, patient also feels bilateral LE weakness and pain. Patient also reports difficulty with urinary voiding for the last 2 weeks. Patient denies any fever, chills, erythema of eyes, sore throat, CP, SOB, cough, abdominal pain, N/V, dysuria, hematuria, urinary burning, myalgia, edema, or rash. Patient recently started Keppra 1000 mg daily on 03/15/19 and denies missing a dose. Patient also takes sumatriptan, gabapentin, and clonazepam. [facility] and has an appointment with Dr. Shaver on 03/18/19. Patient had an EEG on 03/12/19 with unremarkable findings and an MRI on 03/16/19 with unremarkable findings. Patient denies alcohol use or recent illness. 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 - History of Current Complaint Chief Complaint: EDSeizure Stated Complaint: SEIZURE Time Seen by Provider: 03/17/19 14:50 Hx Obtained From: Patient Hx Last Menstrual Period: 01/24/19 Onset/Duration: Sudden Onset, Resolved Timing: Sudden Onset Onset Severity: Moderate Current Severity: Moderate Seizure Severity: Moderate Pain Intensity: 0 Pain Scale Used: 0-10 Numeric Character: Room Spinning - Resolved, Dizzy - Resolved Episode Lasting: Seconds/Minutes - 3-4 min Syncope Context: Witnessed, At Rest Seizure Character: Generalized Aggravating: Nothing Alleviating: Nothing Associated Signs and Symptoms: Positive: Unsteady Gait - After seizure, Dizziness - Before seizure, Pain - Bilateral LE after seizure. Negative: Nausea /Vomiting, Fever, Recent Illness - Allergy/Home Medications Allergies/Adverse Reactions: Allergies Allergy/AdvReac Type Severity Reaction Status Date / Time latex Allergy BURNING Verified 03/12/19 11:02 SENSATION zhou Allergy Anaphylatic Verified 03/12/19 11:02 Shock peach Allergy Anaphylatic Verified 03/12/19 11:02 Shock pineapple Allergy Anaphylatic Verified 03/12/19 11:02 Shock Home Medications: Home Medications Gabapentin TAB(NF) [Neurontin 600 mg TAB(NF)] 600 mg PO DAILY 03/17/19 [History Confirmed 03/17/19] Potassium Gluconate 99 mg PO DAILY 03/17/19 [History Confirmed 03/17/19] levETIRAcetam TAB* [Keppra TAB*] 1,000 mg PO DAILY 03/17/19 [History Confirmed 03/17/19] PMH/Surg Hx/FS Hx/Imm Hx Previously Healthy: Yes Endocrine/Hematology History: Denies: Hx Diabetes Cardiovascular History: Denies: Hx Hypertension, Hx Pacemaker/ICD Respiratory History: Denies: Hx Asthma History: Denies: Hx Renal Disease Sensory History: Denies: Hx Contacts or Glasses, Hx Legally Blind, Hx Deafness, Hx Hearing Aid Opthamlomology History: Denies: Hx Contacts or Glasses, Hx Legally Blind EENT History: Denies: Hx Deafness Neurological History: Reports: Hx Migraine Psychiatric History: Reports: Hx Anxiety - not formally diagnosed or treated, but pt states she has anxiety , Hx Panic Disorder - ANXIETY, Other Psychiatric Issues/Disorders - hx cutting in past, last in 2018 Denies: Hx Eating Disorder, Hx of Violent Episodes Against Others - Surgical History Surgical History: Yes Surgery Procedure, Year, and Place: LAZY EYE SURGERY CHILD Infectious Disease History: No Infectious Disease History: Denies: Traveled Outside the [place] in Last 30 Days - Family History Known Family History: Positive: Cardiac Disease, Other - no hx of suicide in "blood relatives",but uncle "not blood related" - Social History Occupation: Student Lives: Alone Alcohol Use: Occasionally Hx Substance Use: Yes Substance Use Type: Reports: Marijuana Hx Tobacco Use: No Smoking Status (MU): Never Smoked Tobacco Review of Systems Positive: Other - Positive "hot" sensation before seizure. Negative: Fever, Chills Negative: Erythema Negative: Sore Throat Negative: Chest Pain Negative: Shortness Of Breath, Cough Negative: Abdominal Pain, Vomiting, Nausea Positive: other - Positive difficulty with urinary voiding. Negative: burning - Urinary, dysuria, hematuria Positive: Myalgia - Bilateral LE after seizure. Negative: Edema Negative: Rash Neurological: Other - Positive dizziness before seizure and "room spinning" sensation; seizure Positive: Weakness - Bilateral LE after seizure All Other Systems Reviewed And Are Negative: Yes Physical Exam - Summary Physical Exam Summary: Constitutional: Well-developed, Well-nourished, Alert. (-) Distressed Skin: Warm, Dry HENT: Normocephalic; Atraumatic Eyes: Conjunctiva normal Neck: Musculoskeletal ROM normal neck. (-) JVD, (-) Stridor, (-) Tracheal deviation Cardio: Rhythm regular, rate normal, Heart sounds normal; Intact distal pulses; The pedal pulses are 2+ and symmetric. Radial pulses are 2+ and symmetric. (-) Murmur Pulmonary/Chest wall: Effort normal. (-) Respiratory distress, (-) Wheezes, (-) Rales Abd: Soft, (-) tenderness, (-) Distension, (-) Guarding, (-) Rebound Musculoskeletal: (-) Edema Lymph: (-) Cervical adenopathy Neuro: Alert, Oriented x3 Psych: Mood and affect Normal Triage Information Reviewed: Yes Vital Signs On Initial Exam: Initial Vitals Temp Pulse Resp BP Pulse Ox 98.9 F 89 17 106/68 98 03/17/19 14:51 03/17/19 14:51 03/17/19 14:51 03/17/19 14:51 03/17/19 14:51 Vital Signs Reviewed: Yes Procedures - Sedation Patient Received Moderate/Deep Sedation with Procedure: No Diagnostics - Vital Signs Vital Signs Temp Pulse Resp BP Pulse Ox 03/17/19 15:29 77 118/68 95 03/17/19 15:00 74 100 03/17/19 14:58 74 106/69 100 03/17/19 14:53 97 03/17/19 14:51 98.9 F 89 17 106/68 98 - Laboratory Lab Results: Lab Results 03/17/19 03/17/19 03/17/19 Range/Units 15:03 15:03 15:03 WBC 6.0 (3.5-10.8) 10^3/uL RBC 4.41 (3.70-4.87) 10^6 /uL Hgb 12.6 (12.0-16.0) g/dL Hct 38 (35-47) % MCV 87 (80-97) fL MCH 29 (27-31) pg MCHC 33 (31-36) g/dL RDW 15 (10-15) % Plt Count 263 (150-450) 10^3/uL MPV 7.7 (7.4-10.4) fL Neut % (Auto) 63.8 % Lymph % (Auto) 26.6 % Vil[place] % (Auto) 7.7 % Eos % (Auto) 0.7 % Baso % (Auto) 1.2 % Absolute Neuts (auto) 3.8 (1.5-7.7) 10^3/ul Absolute Lymphs (auto) 1.6 (1.0-4.8) 10^3/ul Absolute Monos (auto) 0.5 (0-0.8) 10^3/ul Absolute Eos (auto) 0.0 (0-0.6) 10^3/ul Absolute Basos (auto) 0.1 (0-0.2) 10^3/ul Absolute Nucleated RBC 0.0 10^3/ul Nucleated RBC % 0.1 INR (Anticoag Therapy) 1.15 H (0.82-1.09) Sodium 140 (135-145) mmol/L Potassium 3.8 (3.5-5.0) mmol/L Chloride 105 (101-111) mmol/L Carbon Dioxide 29 (22-32) mmol/L Anion Gap 6 (2-11) mmol/L BUN 17 (6-24) mg/dL Creatinine 0.86 (0.51-0.95) mg/dL Est GFR ( Amer) 102.9 (>60) Est GFR (Non-Af Amer) 85.0 (>60) BUN/Creatinine Ratio 19.8 (8-20) Glucose 90 (70-100) mg/dL Lactic Acid (0.5-2.0) mmol/L Calcium 9.5 (8.6-10.3) mg/dL Magnesium 2.1 (1.9-2.7) mg/dL Total Bilirubin 0.30 (0.2-1.0) mg/dL AST 16 (13-39) U/L ALT 13 (7-52) U/L Alkaline Phosphatase 64 (34-104) U/L Total Protein 7.1 (6.4-8.9) g/dL Albumin 4.4 (3.2-5.2) g/dL Globulin 2.7 (2-4) g/dL Albumin/Globulin Ratio 1.6 (1-3) 03/17/19 Range/Units 15:03 WBC (3.5-10.8) 10^3/uL RBC (3.70-4.87) 10^6 /uL Hgb (12.0-16.0) g/dL Hct (35-47) % MCV (80-97) fL MCH (27-31) pg MCHC (31-36) g/dL RDW (10-15) % Plt Count (150-450) 10^3/uL MPV (7.4-10.4) fL Neut % (Auto) % Lymph % (Auto) % [place] % (Auto) % Eos % (Auto) % Baso % (Auto) % Absolute Neuts (auto) (1.5-7.7) 10^3/ul Absolute Lymphs (auto) (1.0-4.8) 10^3/ul Absolute Monos (auto) (0-0.8) 10^3/ul Absolute Eos (auto) (0-0.6) 10^3/ul Absolute Basos (auto) (0-0.2) 10^3/ul Absolute Nucleated RBC 10^3/ul Nucleated RBC % INR (Anticoag Therapy) (0.82-1.09) Sodium (135-145) mmol/L Potassium (3.5-5.0) mmol/L Chloride (101-111) mmol/L Carbon Dioxide (22-32) mmol/L Anion Gap (2-11) mmol/L BUN (6-24) mg/dL Creatinine (0.51-0.95) mg/dL Est GFR ( Amer) (>60) Est GFR (Non-Af Amer) (>60) BUN/Creatinine Ratio (8-20) Glucose (70-100) mg/dL Lactic Acid 1.8 (0.5-2.0) mmol/L Calcium (8.6-10.3) mg/dL Magnesium (1.9-2.7) mg/dL Total Bilirubin (0.2-1.0) mg/dL AST (13-39) U/L ALT (7-52) U/L Alkaline Phosphatase (34-104) U/L Total Protein (6.4-8.9) g/dL Albumin (3.2-5.2) g/dL Globulin (2-4) g/dL Albumin/Globulin Ratio (1-3) Result Diagrams: 03/17/19 15:03 03/17/19 15:03 Lab Statement: Any lab studies that have been ordered have been reviewed, and results considered in the medical decision making process. - EKG 15:17 Cardiac Rate: NL - 69 BPM EKG Rhythm: Sinus Rhythm ST Segment: Normal Ectopy: None Summary of EKG Findings: EKG at 15:17 reveals 69 BPM with normal sinus rhyhm, no STEMI. Reviewed and interpreted by ED physician. Course/Dx - Course Course Of Treatment: Patient is a 18 y/o F presenting to the ED for a chief complaint of seizure that occurred on 03/17/19. 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 The seizure was witnessed by her professor and lasted for 3- 4 minutes. Patient slid out of her chair while in class and was shaking. She was moved out of the chair by classmates and could not speak during the seizure. Patient admits seizures almost daily since the initial onset of seizure one month ago. Prior to this episode, patient last had a seizure on 07/02 for which she was seen at [facility]. Patient states that before a seizure, she has dizziness with a "room spinning" sensation. Patient reports that on 08/30, patient also felt "hot" before the seizure which she says in unusual. After a seizure, patient also feels bilateral LE weakness and pain. Patient also reports difficulty with urinary voiding for the last 2 weeks. Patient denies any fever, chills, erythema of eyes, sore throat, CP, SOB, cough, abdominal pain, N/V, dysuria, hematuria, urinary burning, myalgia, edema, or rash. Patient recently started Keppra 1000 mg daily on 03/15/19 and denies missing a dose. Patient also takes sumatriptan, gabapentin, and clonazepam. Patient [facility] Dr[facility] at [facility] and has an appointment with Dr. Shaver on 03/18/19. Patient had an EEG on 03/12/19 with unremarkable findings and an MRI on 03/16/19 with unremarkable findings. Patient denies alcohol use or recent illness. On exam, unremarkable findings. At 16:00, patient is smirking as she has an unsteady gait. Symptoms are preceded by dizziness, could be syncopal seizure or pseudo seizure. Reports leg pain after seizures, could be lactic acid buildup. In the ED course, patient was given Clonazapam 0.5 mg PO. Laboratory abnormal findings: INR 1.15, urine leukocyte 1+, urine squamous epith cells present, amorphous crystals present. EKG at 15:17 reveals 69 BPM with normal sinus rhyhm, no STEMI. Seen in room laughing, joking, and smiling. She is able to bear weight and walk, but her gait is awkward. Negative brain MRI with normal posterior circulation. Reviewing her medical records, she has a history of a mental health 941 visit. No medications changes at this time. Some features of syncope in the presentation. At 18:17, Dr. Gomez recommended discharge and to keep the appointment with Dr. Shaver which is more appropriate as her designated neurologist. Patient will be discharged with a diagnosis of loss of consciousness. Follow up with cardiology and Dr. Shaver. - Diagnoses Provider Diagnoses: Loss of consciousness - Physician Notifications Discussed Care Of Patient With: Vinh Gomez - At 18:17, Dr. Vinh Gomez recommended discharge and to keep the appointment with Dr. Shaver which is more appropriate as her designated neurologist. Time Discussed With Above Provider: 18:17 Instructed by Provider To: Admit As Inpatient Discharge ED - Sign-Out/Discharge Documenting (check all that apply): Patient Departure - Discharge - Discharge Plan Condition: Stable Disposition: HOME Patient Education Materials: Syncope (ED) Referrals: Antonella Winters NP [Primary Care Provider] - Bulmaro Light MD [Medical Doctor] - Alejandro Shaver MD [Medical Doctor] - Additional Instructions: Follow up with cardiology in one week and keep your appointment with Dr. Shaver. Return to the Emergency Department for worsening or changing symptoms. - Attestation Statements Document Initiated by Scribe: Yes Documenting Scribe: Nicci New Provider For Whom Scribe is Documenting (Include Credential): David Judd MD Scribe Attestation: I, Nicci New, scribed for David Judd MD on 03/17/19 at 1828. Status of Scribe Document: Ready
[2019-03-17] MEDS ORDERED: clonazePAM TAB(*) 0.5 MG PO ONE (16:17)
[2019-03-17 16:39] LABS: Urine Appearance Cloudy; Urine Bacteria Absent (Absent); Urine Bilirubin Negative (Negative); Urine Blood Negative (Negative); Urine Color Yellow; Urine Glucose Negative (Negative); Urine Ketones Negative (Negative); Urine Nitrite Negative (Negative); Urine Protein Negative (Negative); Urine Red Blood Cell Trace(0-2/hpf) (Absent); Urine Specific Gravity 1.019 (1.010-1.030); Urine Squamous Epithelial Cell Present (Absent); Urine Urobilinogen Negative (Negative); Urine White Blood Cell Trace(0-5/hpf) (Absent)
[2019-03-17 18:22] VITALS: BP 122/91
== END 2019-03-17 18:36 | disposition home or self-care (01) ==
LOC: ED 14:43
DX: R55 Syncope and collapse (principal); R26.81 Unsteadiness on feet; R39.198 Other difficulties with micturition; M79.10 Myalgia, unspecified site; R53.1 Weakness; Z91.040 Latex allergy status; Z91.018 Allergy to other foods
CPT/HCPCS: 36415; 80053; 80177; 81003; 81015; 83605; 83735; 85025; 85610; 87086; 93005; 99283; A9270-GY

== ENCOUNTER 2019-03-18 17:21 | Emergency (ER) | payer BC ==
--- OUTSIDE RECORDS SUMMARY | 2019-03-18 18:13 | XMS REPORT | Continuity of Care Document ---
:2000 External Reference #:[id number] Author Name Ferny Najera N.P. 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 1.5 tabs in pm Sumatriptan Succinate 1 tab twice a Unknown 100mg day max 2 days Tablets a week Fluoxetine HCL 1 by mouth Unknown 40mg every day Capsules Gabapentin 1 tab po qam Unknown 100mg Capsules and noon the 4 tabs po qpm Clonazepam 1/2 tab po bid Unknown 1mg Tablets Potassium OTC take one Unknown 99mg. capsule/tablet daily by mouth Immunizations Description No Information Available Vital Signs Date Vital Result Comment 03/18/2019 10:28am Height 66 inches 5'6" Weight 105.00 lb Heart Rate 80 /min BP Systolic Sitting 96 mmHg BP Diastolic Sitting 74 mmHg Respiratory Rate 15 /min BMI (Body Mass Index) 16.9 kg/m2 Height Percentile 75 % Weight Percentile 8th Procedures Description No Information Available Medical Devices Description No Information Available Encounters Description No Information Available Assessments Date Code Description Provider 03/18/2019 G40.89 Other seizures Ferny Najera N.P. 03/18/2019 G43.009 Migraine without aura, not intractable, Ferny Najera N.P. without status migrainosus 03/18/2019 F41.9 Anxiety disorder, unspecified Ferny Najera N.PJacques Plan of Treatment Future Appointment(s):04/15/2019 8:30 am - Ferny Najera N.Lev at [id number]/18/2019 - Ferny Najera N.PJacquesG40.89 Other seizuresNew Medication:Levetiracetam 500 mg - take 1 tablet by in am and 1.5 tabs in pmFollow up:2-4 [id number] Migraine without aura, not intractable, without status [id number] Anxiety disorder, unspecified Functional Status Description No Information Available Mental Status Description No Information Available Referrals Description No Information Available
[2019-03-18 18:27] LABS: ABS Lymphocytes 1.5 10^3/ul (1.0-4.8); ABS Monocytes 0.5 10^3/ul (0-0.8); ABS Neutrophils 3.2 10^3/ul (1.5-7.7); Eosinophil % 0.9 %; Hematocrit 36 % (35-47); Hemoglobin 12.4 g/dL (12.0-16.0); Lymphocyte % 28.4 %; Mean Corpuscular HGB Conc 34 g/dL (31-36); Mean Corpuscular Hemoglobin 30 pg (27-31); Mean Corpuscular Volume 86 fL (80-97); Mean Platelet Volume 7.9 fL (7.4-10.4); Nucleated Red Blood Cells % 0.2; Platelet Count 252 10^3/uL (150-450); Red Blood Count 4.19 10^6 /uL (3.70-4.87); Red Cell Distribution Width 15 % (10-15); White Blood Count 5.3 10^3/uL (3.5-10.8)
[2019-03-18 18:53] LABS: HCG Pregnancy < 0.60 mIU/mL
[2019-03-18 18:56] LABS: ALT 12 U/L (7-52); AST 17 U/L (13-39); Albumin 4.4 g/dL (3.2-5.2); Alkaline Phosphatase 65 U/L (34-104); Anion Gap 5 mmol/L (2-11); BUN/Creatinine Ratio 17.6 (8-20); Blood Urea Nitrogen 16 mg/dL (6-24); C Reactive Protein < 1.00 mg/L (<8.01); CO2 Carbon Dioxide 30 mmol/L (22-32); Calcium 9.7 mg/dL (8.6-10.3); Chloride 106 mmol/L (101-111); EGFR African American 96.4 (>60); EGFR Non-African American 79.6 (>60); Globulin 2.2 g/dL (2-4); Glucose 79 mg/dL (70-100); Magnesium 2.2 mg/dL (1.9-2.7); Potassium 3.7 mmol/L (3.5-5.0); Sodium 141 mmol/L (135-145); Total Protein 6.6 g/dL (6.4-8.9)
--- NOTE | 2019-03-18 19:01 | ED ---
Seizure - HPI Summary HPI Summary: Patient with history of new onset seizure starting 1 month ago complains of 2 witnessed seizures today. Patient has been seen here at this ED multiple times for same. Patient was started on Keppra 500 mg twice a day 3 days ago. Patient states she has been compliant with medication. Patient had normal EKG on 02/13/19. Normal MRI on 03/16/19. Patient was seen outpatient today at neurology, was advised to increase her nighttime Keppra dose to 1000 mg. Patient has pending MRI with contrast and pending 72 hour EEG. Post seizure activity today, patient complains of bilateral leg pain and weakness which is consistent with prior visits to ED for seizure. Patient states seizures are triggered by stress and anxiety. Denies fever, cough, sore throat, CP, SOB, N/V /V abdominal pain, change in urine, change in BM. Patient neurologist Dr. Gomez. - History Of Current Complaint Chief Complaint: EDSeizure Time Seen by Provider: 03/18/19 17:31 Hx Obtained From: Patient Onset/Duration: Sudden Onset Severity Of Seizure: Self-Limited Location Of Seizure: All Extremities Aggravating Factor(s): Nothing Alleviating Factor(s): Spontaneous Resolution Associated Signs And Symptoms: Negative - Allergies/Home Medications Allergies/Adverse Reactions: Allergies Allergy/AdvReac Type Severity Reaction Status Date / Time latex Allergy BURNING Verified 03/18/19 17:42 SENSATION zhou Allergy Anaphylatic Verified 03/18/19 17:42 Shock peach Allergy Anaphylatic Verified 03/18/19 17:42 Shock pineapple Allergy Anaphylatic Verified 03/18/19 17:42 Shock PMH/Surg Hx/FS Hx/Imm Hx Endocrine/Hematology History: Denies: Hx Diabetes Cardiovascular History: Denies: Hx Hypertension, Hx Pacemaker/ICD Respiratory History: Denies: Hx Asthma History: Denies: Hx Renal Disease Sensory History: Denies: Hx Contacts or Glasses, Hx Legally Blind, Hx Deafness, Hx Hearing Aid Opthamlomology History: Denies: Hx Contacts or Glasses, Hx Legally Blind EENT History: Denies: Hx Deafness Neurological History: Reports: Hx Migraine Psychiatric History: Reports: Hx Anxiety - not formally diagnosed or treated, but pt states she has anxiety , Hx Panic Disorder - ANXIETY, Other Psychiatric Issues/Disorders - hx cutting in past, last in 2017 Denies: Hx Eating Disorder, Hx of Violent Episodes Against Others - Surgical History Surgery Procedure, Year, and Place: LAZY EYE SURGERY CHILD - Immunization History Immunizations Up to Date: Yes Infectious Disease History: No Infectious Disease History: Denies: Traveled Outside the [place] in Last 30 Days - Family History Known Family History: Positive: Cardiac Disease, Other - no hx of suicide in "blood relatives",but uncle "not blood related" - Social History Alcohol Use: Occasionally Hx Substance Use: Yes Substance Use Type: Reports: Marijuana Hx Tobacco Use: No Smoking Status (MU): Never Smoked Tobacco Review of Systems Constitutional: Negative Eyes: Negative ENT: Negative Cardiovascular: Negative Respiratory: Negative Gastrointestinal: Negative Genitourinary: Negative Musculoskeletal: Other Skin: Negative Neurological: Negative Psychological: Normal All Other Systems Reviewed And Are Negative: Yes Physical Exam - Summary Physical Exam Summary: Patient has difficulty raising bilateral knees to chest independently, but is able to do so slowly. Physical exam otherwise unremarkable. Neuro exam unremarkable. Triage Information Reviewed: Yes Vital Signs On Initial Exam: Initial Vitals Temp Pulse Resp BP Pulse Ox 98.0 F 73 18 96/58 100 03/18/19 17:27 03/18/19 17:27 03/18/19 17:27 03/18/19 17:27 03/18/19 17:27 Vital Signs Reviewed: Yes Appearance: Positive: Well-Appearing Skin: Positive: Warm Head/Face: Positive: Normal Head/Face Inspection Eyes: Positive: Normal ENT: Positive: Normal ENT inspection Neck: Positive: Supple Respiratory/Lung Sounds: Positive: Clear to Auscultation Cardiovascular: Positive: Normal Abdomen Description: Positive: Nontender Musculoskeletal: Positive: Normal Neurological: Positive: Normal Psychiatric: Positive: Normal AVPU Assessment: Alert - [place] Coma Scale Best Eye Response: 4 - Spontaneous Best Motor Response: 6 - Obeys Commands Best Verbal Response: 5 - Oriented Coma Scale Total: 15 Procedures - Sedation Patient Received Moderate/Deep Sedation with Procedure: No Diagnostics - Vital Signs Vital Signs Temp Pulse Resp BP Pulse Ox 03/18/19 18:12 81 15 92/72 97 03/18/19 18:00 80 20 100 03/18/19 17:42 77 18 105/72 100 03/18/19 17:30 71 15 99 03/18/19 17:27 98.0 F 73 18 96/58 100 - Laboratory Lab Results: Lab Results 03/18/19 03/18/19 Range/Units 18:02 18:02 WBC 5.3 (3.5-10.8) 10^3/uL RBC 4.19 (3.70-4.87) 10^6 /uL Hgb 12.4 (12.0-16.0) g/dL Hct 36 (35-47) % MCV 86 (80-97) fL MCH 30 (27-31) pg MCHC 34 (31-36) g/dL RDW 15 (10-15) % Plt Count 252 (150-450) 10^3/uL MPV 7.9 (7.4-10.4) fL Neut % (Auto) 60.2 % Lymph % (Auto) 28.4 % [place] % (Auto) 9.6 % Eos % (Auto) 0.9 % Baso % (Auto) 0.9 % Absolute Neuts (auto) 3.2 (1.5-7.7) 10^3/ul Absolute Lymphs (auto) 1.5 (1.0-4.8) 10^3/ul Absolute Monos (auto) 0.5 (0-0.8) 10^3/ul Absolute Eos (auto) 0.0 (0-0.6) 10^3/ul Absolute Basos (auto) 0.0 (0-0.2) 10^3/ul Absolute Nucleated RBC 0.0 10^3/ul Nucleated RBC % 0.2 Sodium 141 (135-145) mmol/L Potassium 3.7 (3.5-5.0) mmol/L Chloride 106 (101-111) mmol/L Carbon Dioxide 30 (22-32) mmol/L Anion Gap 5 (2-11) mmol/L BUN 16 (6-24) mg/dL Creatinine 0.91 (0.51-0.95) mg/dL Est GFR ( Amer) 96.4 (>60) Est GFR (Non-Af Amer) 79.6 (>60) BUN/Creatinine Ratio 17.6 (8-20) Glucose 79 (70-100) mg/dL Calcium 9.7 (8.6-10.3) mg/dL Magnesium 2.2 (1.9-2.7) mg/dL Total Bilirubin 0.40 (0.2-1.0) mg/dL AST 17 (13-39) U/L ALT 12 (7-52) U/L Alkaline Phosphatase 65 (34-104) U/L C-Reactive Protein < 1.00 (<8.01) mg/L Total Protein 6.6 (6.4-8.9) g/dL Albumin 4.4 (3.2-5.2) g/dL Globulin 2.2 (2-4) g/dL Albumin/Globulin Ratio 2.0 (1-3) Beta HCG, Quant < 0.60 mIU/mL Result Diagrams: 03/18/19 18:02 03/18/19 18:02 Lab Statement: Any lab studies that have been ordered have been reviewed, and results considered in the medical decision making process. Course/Dx - Course Course Of Treatment: Patient with history of new onset seizure starting 1 month ago complains of 2 witnessed seizures today. Patient has been seen here at this ED multiple times for same. Patient was started on Keppra 500 mg twice a day 3 days ago. Patient states she has been compliant with medication. Patient had normal EKG on 02/13/19. Normal MRI on 03/16/19. Patient was seen outpatient today at neurology, was advised to increase her nighttime Keppra dose to 1000 mg. Patient has pending MRI with contrast and pending 72 hour EEG. Post seizure activity today, patient complains of bilateral leg pain and weakness which is consistent with prior visits to ED for seizure. Patient states seizures are triggered by stress and anxiety. Denies fever, cough, sore throat, CP, SOB, N/V/V abdominal pain, change in urine, change in BM. Patient neurologist Dr. Gomez. Vital signs within normal limits. Labs unremarkable. Discussed patient with neurologist stitch bonder machine operator helper Dr. Hannon who recommended continuing same a.m. Keppra dose of 500 mg, and increasing nighttime Keppra dose to 1000 milligrams in the p.m. Patient states she was advised to the same today by Bayron Edmonds PA at the neurology clinic. Patient has pending MRI with contrast and pending 72 hour EEG in 1 week. Patient independently ambulatory in the ED, though shaky while ambulating. Discharged to follow-up with neurology. - Diagnoses Provider Diagnoses: Seizure Discharge ED - Sign-Out/Discharge Documenting (check all that apply): Patient Departure - Discharge Plan Condition: Stable Disposition: HOME Patient Education Materials: Recurrent Seizures in Adults (ED) Referrals: Antonella Winters NP [Primary Care Provider] - Vinh Gomez MD [Medical Doctor] - Additional Instructions: Follow-up with neurology Dr Gomez for recurrent seizures. Increase Keppra dose. Take 500 mg in the a.m. and 1000mg in the p.m. Return to the ED for any new or worsening symptoms. - Billing Disposition and Condition Condition: STABLE Disposition: Home - Attestation Statements Provider Attestation: I was available for consult. This patient was seen by the KRYSTIN. The patient was not presented to, seen by, or examined by me. Obdulio Mazariegos MD
[2019-03-18 19:55] VITALS: BP 97/59
== END 2019-03-18 19:50 | disposition home or self-care (01) ==
LOC: ED 17:21
DX: R56.9 Unspecified convulsions (principal); M79.605 Pain in left leg; M79.604 Pain in right leg; R53.1 Weakness; Z91.040 Latex allergy status; Z91.018 Allergy to other foods
CPT/HCPCS: 36415; 80053; 83735; 84702; 85025; 86140; 93005; 99283

== ENCOUNTER 2019-03-19 11:14 | Emergency (ER) | payer BC ==
--- NOTE | 2019-03-19 11:25 | ED ---
Neurological HPI - HPI Summary HPI Summary: Pt is a 18 y/o F presenting to the ED brought in by EMS for a possible seizure. Per EMS, on their arrival pt was crying on the floor and could not stand up. Pt s friend told EMS that yesterdays possible seizure was more violent, but today it was localized in her chest. She was convinced by EMS to come to the ED, as she initially did not want to. She is on Keppra and Gabapentin. She reports pain in her legs. She denies LOC. Pt had normal MRI on 03/15/19 and normal EEG on 03/11/19. - History of Current Complaint Stated Complaint: POSS SEIZURE PER EMS Time Seen by Provider: 03/19/19 11:18 Hx Obtained From: Patient, EMS Hx Last Menstrual Period: 01/24/19 Onset/Duration: Sudden Onset, Started hours ago, Resolved Timing: Intermittent Episodes Lasting: - minutes Onset Severity: Mild Current Severity: None Seizure Severity: Mild Neurological Deficit Location: Generalized Character: Motor Weakness Syncope Context: Witnessed, Loss of Consciousness: No Seizure Character: Generalized Aggravating: Unknown Alleviating: Spontanious Resolution Associated Signs and Symptoms: Positive: Unsteady Gait, Seizure - Allergy/Home Medications Allergies/Adverse Reactions: Allergies Allergy/AdvReac Type Severity Reaction Status Date / Time latex Allergy BURNING Verified 03/18/19 17:42 SENSATION zhou Allergy Anaphylatic Verified 03/18/19 17:42 Shock peach Allergy Anaphylatic Verified 03/18/19 17:42 Shock pineapple Allergy Anaphylatic Verified 03/18/19 17:42 Shock Home Medications: Home Medications Gabapentin CAP(*) [Neurontin 400 mg CAP(*)] 400 mg PO BEDTIME 03/19/19 [History Confirmed 03/19/19] levETIRAcetam TAB* [Keppra TAB*] 1,000 mg PO QPM 03/19/19 [History Confirmed 10/30] PMH/Surg Hx/FS Hx/Imm Hx Previously Healthy: Yes Endocrine/Hematology History: Denies: Hx Diabetes Cardiovascular History: Denies: Hx Hypertension, Hx Pacemaker/ICD Respiratory History: Denies: Hx Asthma History: Denies: Hx Renal Disease Sensory History: Denies: Hx Contacts or Glasses, Hx Legally Blind, Hx Deafness, Hx Hearing Aid Opthamlomology History: Denies: Hx Contacts or Glasses, Hx Legally Blind Neurological History: Reports: Hx Migraine Psychiatric History: Reports: Hx Anxiety - not formally diagnosed or treated, but pt states she has anxiety , Hx Panic Disorder - ANXIETY, Other Psychiatric Issues/Disorders - hx cutting in past, last in 2018 Denies: Hx Eating Disorder, Hx of Violent Episodes Against Others - Surgical History Surgery Procedure, Year, and Place: [facility] E[facility] SURGERY [facility]ILD Infectious Disease History: Denies: Traveled Outside the [place] in Last 30 Days - Family History Known Family History: Positive: Cardiac Disease, Other - no hx of suicide in "blood relatives",but uncle "not blood related" Negative: Seizure Disorder - Social History Alcohol Use: Occasionally Hx Substance Use: Yes Substance Use Type: Reports: Marijuana Hx Tobacco Use: No Smoking Status (MU): Never Smoked Tobacco Review of Systems Positive: Myalgia - bilateral LE Neurological: Other - seizure Negative: Syncope All Other Systems Reviewed And Are Negative: Yes Physical Exam - Summary Physical Exam Summary: Constitutional: Well-developed, Well-nourished, Alert. (-) Distressed Skin: Warm, Dry HENT: Normocephalic; Atraumatic Eyes: Conjunctiva normal Neck: Musculoskeletal ROM normal neck. (-) JVD, (-) Nuchal rigidity Cardio: Rhythm regular, rate normal, Heart sounds normal; Intact distal pulses; Radial pulses are 2+ and symmetric. (-) Murmur Pulmonary/Chest wall: Effort normal. (-) Respiratory distress, (-) Wheezes, (-) Rales Abd: Soft. (-) Tenderness, (-) Distension, (-) Guarding, (-) Rebound Musculoskeletal: (-) Edema. Tenderness of the bilateral LE on palpation Lymph: (-) Cervical adenopathy Neuro: Alert, PERRL, Oriented x3, Strength normal, Cranial nerves II-XII are grossly intact. SILT, Strength 5/5 BUE and BLE, able to ambulate with assistance Psych: Mood and affect withdrawn Triage Information Reviewed: Yes Vital Signs Reviewed: Yes Procedures - Sedation Patient Received Moderate/Deep Sedation with Procedure: No Diagnostics - Laboratory Result Diagrams: 03/19/19 12:03 03/19/19 12:03 Lab Statement: Any lab studies that have been ordered have been reviewed, and results considered in the medical decision making process. Re-Evaluation - Re-Evaluation 1st re-eval Re-Evaluation Time: 13:46 Change: Unchanged Comment: Pt reports some knee pain on ambulation. Will give Toradol. Second Eval Re-Evaluation Time: 14:40 Change: Unchanged - patient still reporting pain in legs, is able to ambulate with assistance, states his baseline after her seizures, does not want to stay for further eval. Course/Dx - Course Course Of Treatment: 18-year-old female who presents with seizure-like episode. Patient's been seen multiple times in the ED the past week, labs unremarkable. Had medication increase last time she was here. Will discuss with neurology. Patient had normal MRI and EEG. Has follow-up with neurology outpatient - Diagnoses Provider Diagnoses: Seizure, Knee pain Discharge ED - Sign-Out/Discharge Documenting (check all that apply): Patient Departure - Discharge Plan Condition: Stable Disposition: HOME Patient Education Materials: Recurrent Seizures in Adults (ED) Referrals: Antonella Winters NP [Primary Care Provider] - Additional Instructions: You were seen in the emergency department for a seizure. Please follow-up with a neurologist. Please take a shower and do not take a bath, do not swim alone. Do not drive or operate machinery. Please continue taking medications as prescribed and follow-up with your doctor in the next 1-2 days. Please return to emergency department for continued seizures, weakness of her arms or legs, or if you're concerned - Billing Disposition and Condition Condition: STABLE Disposition: Home - Attestation Statements Document Initiated by Javy: Yes Documenting Scribe: Tri Thompson Provider For Whom Javy is Documenting (Include Credential): Shane Grimes MD. Scribe Attestation: ITri, scribed for Shane Grimes MD. on 03/19/19 at 2126. Scribe Documentation Reviewed: Yes Provider Attestation: The documentation as recorded by the Tri fitzpatrick accurately reflects the service I personally performed and the decisions made by , Shane Grimes MD. Status of Scribe Document: Viewed Consult Consult: 3029 - I spoke with Bayron Najera NP, who wants to check a CBK and a lactic. He already has outpatient plan set up for the pt.
[2019-03-19] MEDS ORDERED: NS 0.9% 1000 ML** 1,000 ML IV ONE (11:52)
[2019-03-19 12:11] LABS: ABS Basophils 0.1 10^3/ul (0-0.2); ABS Lymphocytes 1.2 10^3/ul (1.0-4.8); ABS Monocytes 0.4 10^3/ul (0-0.8); ABS Neutrophils 3.1 10^3/ul (1.5-7.7); Hematocrit 38 % (35-47); Hemoglobin 12.5 g/dL (12.0-16.0); Lymphocyte % 23.9 %; Mean Corpuscular HGB Conc 33 g/dL (31-36); Mean Corpuscular Hemoglobin 29 pg (27-31); Mean Corpuscular Volume 87 fL (80-97); Mean Platelet Volume 7.8 fL (7.4-10.4); Nucleated Red Blood Cells % 0.1; Platelet Count 230 10^3/uL (150-450); Red Blood Count 4.35 10^6 /uL (3.70-4.87); Red Cell Distribution Width 14 % (10-15); White Blood Count 4.8 10^3/uL (3.5-10.8)
[2019-03-19 12:33] LABS: Albumin 4.4 g/dL (3.2-5.2); Albumin/Globulin Ratio 1.8 (1-3); BUN/Creatinine Ratio 18.6 (8-20); Calcium 9.9 mg/dL (8.6-10.3); EGFR African American 89.5 (>60); Globulin 2.5 g/dL (2-4); Potassium 4.1 mmol/L (3.5-5.0); Total Bilirubin 0.5 mg/dL (0.2-1.0); Total Protein 6.9 g/dL (6.4-8.9)
[2019-03-19] MEDS ORDERED: Ketorolac INJ* 30 MG/ML 1 ML VIAL IV ONE (13:46)
[2019-03-19 14:53] VITALS: BP 99/62
== END 2019-03-19 14:52 | disposition home or self-care (01) ==
LOC: ED 11:14
DX: R56.9 Unspecified convulsions (principal); M25.569 Pain in unspecified knee; Z79.899 Other long term (current) drug therapy
CPT/HCPCS: 36415; 80053; 82550; 83605; 85025; 96361; 96374; 99283; J1885

== ENCOUNTER 2019-03-21 10:24 | Emergency (ER) | payer BC ==
--- NOTE | 2019-03-21 10:28 | ED ---
Neurological HPI - HPI Summary HPI Summary: 18 year old F brought in by [facility] to [facility] complains of one full body seizure lasting for 2 minutes at [facility] which happened minutes prior to arrival per EMS. Patient states that before her seizure today, she felt light headed, then "the mood of the room changed," and her right hand started shaking , and she had a seizure. No tongue biting or no urinary incontinence during seizure. No increased urine frequency recently. Reports increased urine urgency but little output. [facility] states that [facility] was already with patient when they arrived. Per [facility], [facility] reported that patient was in postictal phase when [facility] arrived to scene, and that patient was no longer in postictal phase after [facility] arrived. [facility] reports that patient was unable to ambulate to the stretcher herself, and needed help. Per [facility], patient complains of bilateral lower extremity weakness and pain. The patient rates the pain 7/10 in severity. Symptoms aggravated by nothing. Symptoms alleviated by nothing. Patient denies fever, chills, erythema of eyes, sore throat, chest pain, shortness of breath, cough, abdominal pain, nausea/ vomiting, dysuria, hematuria, myalgia, edema, rash, or dizziness. [facility] reports NSR on the monitor, BG 81, and that patient hasn't eaten anything yet today. Patient has been to the ED multiple times in the last week after having seizures. Per EMS, patient states that after she has been discharged, she has not been able to walk well. Patient states she has been taking her Keppra as prescribed, 500 mg AM 1000 mg PM. No alcohol. Patient states she had follow up appointment with Bayron Najera, neurology [employer], on Sunday 03/18, and plans to have an MRI with contrast done. - History of Current Complaint Stated Complaint: SEIZURE Hx Obtained From: Patient, EMS Onset/Duration: Started minutes ago, Resolved Pain Intensity: 7 Pain Scale Used: 0-10 Numeric Aggravating: Nothing Alleviating: Nothing Associated Signs and Symptoms: Positive: Negative - fever, chills, erythema of eyes, sore throat, cheset pain, shortness of breath,, cough, abdominal pain, nausea/vomiting, dysuria, hematuria, myalgia, edema, rash, or dizziness, Weakness - BLE, Pain - BLE - Allergy/Home Medications Allergies/Adverse Reactions: Allergies Allergy/AdvReac Type Severity Reaction Status Date / Time latex Allergy BURNING Verified 03/18/19 17:42 SENSATION zhou Allergy Anaphylatic Verified 03/18/19 17:42 Shock peach Allergy Anaphylatic Verified 03/18/19 17:42 Shock pineapple Allergy Anaphylatic Verified 03/18/19 17:42 Shock PMH/Surg Hx/FS Hx/Imm Hx Endocrine/Hematology History: Denies: Hx Diabetes Cardiovascular History: Denies: Hx Hypertension Respiratory History: Denies: Hx Asthma Sensory History: Denies: Hx Contacts or Glasses, Hx Legally Blind, Hx Deafness, Hx Hearing Aid Opthamlomology History: Denies: Hx Contacts or Glasses, Hx Legally Blind Neurological History: Reports: Hx Migraine Psychiatric History: Reports: Hx Anxiety - not formally diagnosed or treated, but pt states she has anxiety , Hx Panic Disorder - ANXIETY, Other Psychiatric Issues/Disorders - hx cutting in past, last in 2018 Denies: Hx Eating Disorder, Hx of Violent Episodes Against Others - Surgical History Surgery Procedure, Year, and Place: LAZY EYE SURGERY CHILD - Family History Known Family History: Positive: Cardiac Disease, Other - no hx of suicide in "blood relatives",but uncle "not blood related" Negative: Seizure Disorder - Social History Alcohol Use: Occasionally Hx Substance Use: Yes Substance Use Type: Reports: Marijuana Hx Tobacco Use: No Smoking Status (MU): Never Smoked Tobacco Review of Systems Negative: Fever, Chills Negative: Erythema Negative: Sore Throat Negative: Chest Pain Negative: Shortness Of Breath, Cough Negative: Abdominal Pain, Vomiting, Nausea Positive: urgency, other - little urine output. Negative: dysuria, frequency, hematuria, incontinence Positive: Other - BLE pain. Negative: Myalgia, Edema Negative: Rash Neurological: Negative - Dizziness, tongue biting, Other - seizure Positive: Weakness - BLE All Other Systems Reviewed And Are Negative: Yes Physical Exam - Summary Physical Exam Summary: Constitutional: Well-developed, Well-nourished, Alert. (-) Distressed Skin: Warm, Dry HENT: Normocephalic; Atraumatic Eyes: Conjunctiva normal Neck: Musculoskeletal ROM normal neck. (-) JVD, (-) Stridor, (-) Tracheal deviation Cardio: Rhythm regular, rate normal, Heart sounds normal; Intact distal pulses; The pedal pulses are 2+ and symmetric. Radial pulses are 2+ and symmetric. (-) Murmur Pulmonary/Chest wall: Effort normal. (-) Respiratory distress, (-) Wheezes, (-) Rales Abd: Soft, (-) tenderness, (-) Distension, (-) Guarding, (-) Rebound Musculoskeletal: (-) Edema Lymph: (-) Cervical adenopathy Neuro: Alert, Oriented x3 Psych: Mood and affect Normal Triage Information Reviewed: Yes Vital Signs Reviewed: Yes Procedures - Sedation Patient Received Moderate/Deep Sedation with Procedure: No Diagnostics - Laboratory Result Diagrams: 03/21/19 11:07 03/21/19 11:07 Lab Statement: Any lab studies that have been ordered have been reviewed, and results considered in the medical decision making process. - EKG 1043 Cardiac Rate: NL - 61 BPM EKG Rhythm: Sinus Rhythm Re-Evaluation - Re-Evaluation First Eval Re-Evaluation Time: 11:58 Change: Unchanged Comment: patient states she has a walker but it hasn't been helping. patient agrees to neuro consult and admission Course/Dx - Course Course Of Treatment: 18 year old F brought in by [facility] to [facility] complains of one full body seizure lasting for 2 minutes which happened minutes prior to arrival, bilateral lower extremity weakness and pain per EMS. Patient states she felt light headed and shakey before her seizure. No tongue biting or urinary incontinence during seizure. Patient arrives to ED in post postictal phase. Patient has been to the ED multiple times in the last week after having seizures. She has been having bilateral lower extremity weakness and pain after her seizures. Reviewed medical record from ED visit on Sunday03/17/19. Patient states she has been taking her Keppra as prescribed, 500 mg AM 1000 mg PM. Patient states she had follow up appointment with Bayron Najera, neurology [employer], on Sunday 03/18, and plans to have an MRI with contrast done. Physical exam findings: unremarkable. Bloodwork results with no significant abnormalities except for INR 1.14. An EKG shows NSR [address] Hannon, neurology. He recommends d/c patient and increasing Keppra to 1000 mg BID and states patient has video EEG scheduled for next Wednesday 03/28. Patient will be discharged home with prescription for Keppra 1000 mg BID PO and follow up from her neurologist at her scheduled appointment on 03/28. Patient was instructed to return to Emergency Department for new or worsening symptoms. Patient understands and is agreeable to this plan - Diagnoses Provider Diagnoses: LOC (loss of consciousness) - Physician Notifications Discussed Care Of Patient With: Giovanni Hannon Time Discussed With Above Provider: 12:05 Instructed by Provider To: Other - Dr. Hannon, neurology, agrees to consult. Dr. Hannon recommends d/c and increasing Keppra to 1000 mg BID and states patient has video EEG scheduled for next Wednesday 03/28. Discharge ED - Sign-Out/Discharge Documenting (check all that apply): Patient Departure - Discharge - Discharge Plan Condition: Stable Disposition: HOME Prescriptions: levETIRAcetam TAB* [Keppra TAB*] 1,000 mg PO BID #40 tab Patient Education Materials: Lightheadedness (ED) Referrals: Antonella Winters NP [Primary Care Provider] - Bayron Najera [Nurse Practitioner] - 03/28/19 Additional Instructions: Continue taking Keppra. Follow up with your neurologist at your scheduled appointment on 03/28/19. Return to the Emergency Department for changing or worsening symptoms. - Attestation Statements Document Initiated by Scribe: Yes Documenting Scribe: Ariana Cheng Provider For Whom Scribe is Documenting (Include Credential): David Judd MD Scribe Attestation: Ariana Granados, scribed for David Judd MD on 03/21/19 at 1359. Status of Scribe Document: Ready
[2019-03-21 11:16] LABS: ABS Lymphocytes 1.1 10^3/ul (1.0-4.8); ABS Monocytes 0.3 10^3/ul (0-0.8); ABS Neutrophils 2.9 10^3/ul (1.5-7.7); Eosinophil % 1.1 %; Hematocrit 38 % (35-47); Hemoglobin 12.7 g/dL (12.0-16.0); Lymphocyte % 25.6 %; Mean Corpuscular HGB Conc 34 g/dL (31-36); Mean Corpuscular Hemoglobin 29 pg (27-31); Mean Corpuscular Volume 86 fL (80-97); Platelet Count 201 10^3/uL (150-450); Red Blood Count 4.39 10^6 /uL (3.70-4.87); Red Cell Distribution Width 14 % (10-15); White Blood Count 4.4 10^3/uL (3.5-10.8)
[2019-03-21 11:24] LABS: INR 1.14 (0.82-1.09)
[2019-03-21 11:38] LABS: Albumin 4.4 g/dL (3.2-5.2); Albumin/Globulin Ratio 1.8 (1-3); BUN/Creatinine Ratio 19.3 (8-20); Calcium 9.6 mg/dL (8.6-10.3); EGFR African American 107.2 (>60); EGFR Non-African American 88.6 (>60); Globulin 2.4 g/dL (2-4); Magnesium 1.9 mg/dL (1.9-2.7); Potassium 4.2 mmol/L (3.5-5.0); Total Bilirubin 0.4 mg/dL (0.2-1.0); Total Protein 6.8 g/dL (6.4-8.9)
[2019-03-21 15:39] VITALS: BP 95/49
--- NOTE | 2019-03-21 17:35 | CONS ---
CONSULTATION REPORT: DATE OF CONSULT: 03/21/19 - EMERGENCY DEPT PATIENT OF: Bayron Najera NP, and [facility]. 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 She has had recent history of seizures as described below. Today, she was sitting in her class and she felt a change in the mood in the classroom and sort of vague symptoms and then apparently had a 2- minute long generalized clonic event and was brought to the emergency room where she had difficulty walking and that will be described below. She has had episodes since February of spells. The spells began initially when she was abruptly stopped from her Xanax and initial seizure was thought to be secondary to benzodiazepine withdrawals, but she has now been on a steady state of clonazepam and is still having frequent events. The last event was 2 days ago and she has had a few in the past week or two. She had seen Bayron Najera NP, for the first time 3 days ago, at which time she was already on Keppra 500 twice a day and he increased it to 500 in the morning and 1000 at night. She also gets headaches on some of these episodes and is on sumatriptan. She is on fluoxetine 40 mg every day as well as gabapentin 100 in the morning and 400 at night. She is maintained on clonazepam half a tab twice a day. She has a history of longstanding anxiety, but there have been no recent stressors other than she says the seizure itself. She has had a history of substance abuse, currently in treatment and she had misused her benzodiazepine meds. She notes that she only has used marijuana in the past, not recently and has no other street drug abuse. PAST MEDICAL HISTORY: She has had a fracture of her collarbone in 2018 and foot injury in 5th grade. She has had eye surgery at age 2. She has had chronic migraines. FAMILY HISTORY: Stroke, heart disease, depression, and anxiety. SOCIAL HISTORY: She does not smoke. REVIEW OF SYSTEMS: Negative in all 14 spheres other than HPI. PHYSICAL EXAM: Temperature 98.8, pulse is 78, respirations 16, blood pressure 95/49. She was alert and oriented with normal speech and comprehension. Cranial nerves II through XII were intact. Fundi were benign. Motor exam revealed normal tone, strength, and coordination. Sensation intact to light touch. Reflexes were 2+ and equal with downgoing toes. Neck was supple. Her gait was unusual and apparently it was that way following her last seizure as well according to Dr. Judd. She walked bent over and extremely hesitant gait , which was narrow based. It looks like she was going to fall, but she did not fall. With distraction, I was able to have her stand up straight and she could walk more easily both backwards and front. With just standing still, she needed initially 2-person support, but then with gradual distraction and discussion, I was able to have her stand including with her eyes closed with just light touch on her left arm without her falling. Dr. Judd had seen her earlier and said that she had a wide-based gait very different. She had initially difficulty moving her legs with walking. When she hopped into bed, she was able to jump up onto the bed and then quickly maneuver so she was in a lying down position with good strength and coordination in her legs. I had her do not only [id number], but big toe to my finger and she could use both legs smoothly. Chest: Clear. Cardiovascular: Regular rate and rhythm. Abdomen was soft with positive bowel sounds. LABORATORY DATA: Include normal CBC, INR, and chemistries. IMPRESSION AND PLAN: I discussed with her, Dr. Judd and Bayron Najera NP, that there was likely a component of stress to her neurological symptoms. I discussed that her gait appeared to be stress related and there are major inconsistencies with this. I think this gait was part of a conversion disorder that would make me concerned that some of her seizures may be. It is possible that she had an initial withdrawal seizure from the benzodiazepines, but it is possible that the subsequent seizures are nonepileptic. She has had normal EEG and MRI scan. I think that what needs to be done is a prolonged EEG. I called the EEG lab and they recently moved her 3-day ambulatory EEG for more than a month out to this coming Sunday. I will not be able to get any sooner studies most likely and this is in terms of prolonged EEG and I think that this is what she needs. It would be good to try to capture an event. We are increasing her Keppra to 1000 twice a day. She has not been depressed or schmidt with this, but Keppra would not be a long-term good anticonvulsant if she needs to stay on one for someone who has significant anxiety and possibly a mood disorder. Followup will be through Bayron Najera NP. Thank you for sharing her case. [id number]/[facility] #: [id number] RABIA
== END 2019-03-21 13:40 | disposition home or self-care (01) ==
LOC: ED 10:24
DX: R55 Syncope and collapse (principal); Z79.899 Other long term (current) drug therapy; Z91.040 Latex allergy status
CPT/HCPCS: 36415; 80053; 80177; 83605; 83735; 85025; 85610; 93005; 99282

== ENCOUNTER 2019-03-22 20:29 | Emergency (ER) | payer BC ==
[2019-03-22 20:40] VITALS: BP 117/71
--- NOTE | 2019-03-22 20:46 | ED ---
Neurological HPI - HPI Summary HPI Summary: This patient is a 18 year old female brought in by EMS presenting to [facility] with a chief complaint of seizures. 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 She states she has not been able to walk completely normal since a couple days ago. Patient takes 500 mg Keppra in the morning and 1000 mg at night. 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 She reports a Hx of anxiety.She reports knee pain and weakness secondary to pain. She states this is typical after her seizures. She states she is currently taking clonazepam. She has been to the ED several times over the last week for the same problem. - History of Current Complaint Stated Complaint: SEIZURE PER EMS Hx Obtained From: Patient Hx Last Menstrual Period: 01/24/19 Onset/Duration: Sudden Onset, Started hours ago Pain Intensity: 8 Pain Scale Used: 0-10 Numeric - Allergy/Home Medications Allergies/Adverse Reactions: Allergies Allergy/AdvReac Type Severity Reaction Status Date / Time latex Allergy BURNING Verified 03/18/19 17:42 SENSATION zhou Allergy Anaphylatic Verified 03/18/19 17:42 Shock peach Allergy Anaphylatic Verified 03/18/19 17:42 Shock pineapple Allergy Anaphylatic Verified 03/18/19 17:42 Shock PMH/Surg Hx/FS Hx/Imm Hx Endocrine/Hematology History: Denies: Hx Diabetes Cardiovascular History: Denies: Hx Hypertension Respiratory History: Denies: Hx Asthma Sensory History: Denies: Hx Contacts or Glasses, Hx Legally Blind, Hx Deafness, Hx Hearing Aid Opthamlomology History: Denies: Hx Contacts or Glasses, Hx Legally Blind Neurological History: Reports: Hx Migraine Psychiatric History: Reports: Hx Anxiety - not formally diagnosed or treated, but pt states she has anxiety , Hx Panic Disorder - ANXIETY, Other Psychiatric Issues/Disorders - hx cutting in past, last in 2018 Denies: Hx Eating Disorder, Hx of Violent Episodes Against Others - Surgical History Surgery Procedure, Year, and Place: LAZY EYE SURGERY CHILD Infectious Disease History: No Infectious Disease History: Denies: Traveled Outside the [place] in Last 30 Days - Family History Known Family History: Positive: Cardiac Disease, Other - no hx of suicide in "blood relatives",but uncle "not blood related" Negative: Seizure Disorder - Social History Alcohol Use: Occasionally Hx Substance Use: Yes Substance Use Type: Reports: Marijuana Hx Tobacco Use: No Smoking Status (MU): Never Smoked Tobacco Review of Systems Positive: Other - Knee pain Neurological: Other - Seizures Positive: Weakness All Other Systems Reviewed And Are Negative: Yes Physical Exam - Summary Physical Exam Summary: Constitutional: Well-developed, Well-nourished, Alert. (-) Distressed Skin: Warm, Dry HENT: Normocephalic; Atraumatic Eyes: Conjunctiva normal. 8 mm reactive to light. Nystagmus with leftward gaze. Neck: Musculoskeletal ROM normal neck. (-) JVD, (-) Stridor, (-) Tracheal deviation Cardio: Rhythm regular, rate normal, Heart sounds normal; Intact distal pulses. Radial pulses are 2+ and symmetric. (-) Murmur Pulmonary/Chest wall: Effort normal. (-) Respiratory distress, (-) Wheezes, (-) Rales Abd: Soft. (-) Tenderness, (-) Distension, (-) Guarding, (-) Rebound Musculoskeletal: (-) Edema Lymph: (-) Cervical adenopathy Neuro: Alert, Oriented x3, 4/5 strength in bilateral lower extremities, Cranial nerves II-XII are grossly intact. (-) Dysmetria, (-) Nystagmus, (-) Ataxia by finger to nose testing, (-) Sensory deficit. Psych: Mood and affect Normal Triage Information Reviewed: Yes Vital Signs On Initial Exam: Initial Vitals Temp Pulse Resp BP Pulse Ox 98.8 F 70 14 117/71 99 03/22/19 20:33 03/22/19 20:33 03/22/19 20:33 03/22/19 20:33 03/22/19 20:33 Vital Signs Reviewed: Yes Procedures - Sedation Patient Received Moderate/Deep Sedation with Procedure: No Diagnostics - Vital Signs Vital Signs Temp Pulse Resp BP Pulse Ox 03/22/19 20:33 98.8 F 70 14 117/71 99 - Laboratory Lab Statement: Any lab studies that have been ordered have been reviewed, and results considered in the medical decision making process. Re-Evaluation - Re-Evaluation First Eval Re-Evaluation Time: 21:02 Comment: Patient offered transfer to [facility] but declined. Patient was able to ambulate to a chair with pain. She will be given ibuprofen and discharged once she feels comfortable. Second Eval Re-Evaluation Time: 21:42 Course/Dx - Course Course Of Treatment: Patient is here with possible seizure activity. EMS didn' t witness 2 focal seizures that they thought were pseudoseizure-like in nature. Patient started having seizures one month ago after stopping Xanax. Patient was transitioned clonazepam by [facility] and takes it every day. Patient did have lower extremity weakness which is her baseline postictal symptoms. Neurology was called and they really want patient to [place] to make it to Sunday to get her EEG. However, the only way to escalate therapy at this time is to transfer her for video EEG. Patient was offered transfer to [facility] for video EEG but declined. Patient was given ibuprofen and heat packs for her knee pain with fast improvement in her symptoms. Patient felt comfortable taking an Uber home where her friends will meet her to help her get to her dorm. - Diagnoses Provider Diagnoses: Seizure Discharge ED - Sign-Out/Discharge Documenting (check all that apply): Patient Departure - Discharge - Discharge Plan Condition: Stable Disposition: HOME Patient Education Materials: Recurrent Seizures in Adults (ED) Referrals: Bayron Najera [Nurse Practitioner] - Additional Instructions: Call Bayron DHILLON on Sunday and ask what time your appointment is. - Billing Disposition and Condition Condition: STABLE Disposition: Home - Attestation Statements Document Initiated by Javy: Yes Documenting Scribe: Monroe More Provider For Whom Javy is Documenting (Include Credential): Obdulio Mazariegos MD Scribe Attestation: Monroe Granados, scribed for Obdulio Mazariegos MD on 03/22/19 at 2157. Scribe Documentation Reviewed: Yes Provider Attestation: The documentation as recorded by the Monroe fitzpatrick accurately reflects the service I personally performed and the decisions made by me, Obdulio Mazariegos MD Status of Scribe Document: Viewed
[2019-03-22] MEDS ORDERED: Ibuprofen TAB* 600 MG PO ONE (21:03)
== END 2019-03-22 22:20 | disposition home or self-care (01) ==
LOC: ED 20:29
DX: R56.9 Unspecified convulsions (principal); Z91.040 Latex allergy status
CPT/HCPCS: 99283; A9270-GY

== ENCOUNTER 2019-03-25 14:27 | Emergency (ER) | payer BC ==
--- NOTE | 2019-03-25 15:50 | ED ---
Neurological HPI - HPI Summary HPI Summary: This patient is a 18 year old F brought to [facility] by EMS with a chief complaint of episodic seizures since today 03/25/19 at 1400, per triage. Symptoms aggravated by nothing. Symptoms alleviated by nothing. Patient reports 3 seizure episodes occurring back to back with 2-3 min in between with the 1st lasting 3-4 minutes, the 2nd lasting 2 minutes, and the 3rd lasting 45 seconds. Pt reports use of Gabapentin and Keppra for seizure control. Pt reports she was in Amharic class during onset and felt spaced out which she reported to the EMT next to her who laid her down on the ground. Pt reports currently feeling twitchy which is abnormal after seizures and her legs are tired and weak which always occurs. Pt denies nausea, vomiting, chills. Last menstrual period was . - History of Current Complaint Chief Complaint: EDSeizure Stated Complaint: SEISURE PER EMS Time Seen by Provider: 03/25/19 15:21 Hx Obtained From: Patient Hx Last Menstrual Period: 01/24/19 Onset/Duration: Started hours ago Pain Intensity: 0 Episode Lasting: Seconds/Minutes - range of 45 sec to 4 min Number of Episodes: 3 Frequency: Episodes x___ - 3, Episodes Lasting ____ (in Mins/Days/Weeks/Years) - min/sec Aggravating: Nothing Alleviating: Nothing Associated Signs and Symptoms: Positive: Negative - denies chills; reports feeling twitchy and legs are weak and tired. Negative: Nausea/Vomiting - Allergy/Home Medications Allergies/Adverse Reactions: Allergies Allergy/AdvReac Type Severity Reaction Status Date / Time latex Allergy BURNING Verified 03/25/19 14:31 SENSATION zhou Allergy Anaphylatic Verified 03/25/19 14:31 Shock peach Allergy Anaphylatic Verified 03/25/19 14:31 Shock pineapple Allergy Anaphylatic Verified 03/25/19 14:31 Shock PMH/Surg Hx/FS Hx/Imm Hx Endocrine/Hematology History: Denies: Hx Diabetes Cardiovascular History: Denies: Hx Hypertension Respiratory History: Denies: Hx Asthma History: Sensory History: Denies: Hx Contacts or Glasses, Hx Legally Blind, Hx Deafness, Hx Hearing Aid Opthamlomology History: Denies: Hx Contacts or Glasses, Hx Legally Blind Neurological History: Reports: Hx Migraine Psychiatric History: Reports: Hx Anxiety - not formally diagnosed or treated, but pt states she has anxiety , Hx Panic Disorder - ANXIETY, Other Psychiatric Issues/Disorders - hx cutting in past, last in 2018 Denies: Hx Eating Disorder, Hx of Violent Episodes Against Others - Surgical History Surgery Procedure, Year, and Place: LAZY EYE SURGERY CHILD Infectious Disease History: No Infectious Disease History: Denies: Traveled Outside the [place] in Last 30 Days - Family History Known Family History: Positive: Cardiac Disease, Other - no hx of suicide in "blood relatives",but uncle "not blood related" Negative: Seizure Disorder - Social History Alcohol Use: Occasionally Hx Substance Use: Yes Substance Use Type: Reports: Marijuana Hx Tobacco Use: No Smoking Status (MU): Never Smoked Tobacco Review of Systems Negative: Chills Negative: Vomiting, Nausea Neurological: Other - seizure, feeling "twitchy", legs tired and weak All Other Systems Reviewed And Are Negative: Yes Physical Exam - Summary Physical Exam Summary: Constitutional: Well-developed, Well-nourished, Alert. (-) Distressed Skin: Warm, Dry HENT: Normocephalic; Atraumatic Eyes: Conjunctiva normal Neck: Musculoskeletal ROM normal neck. (-) JVD, (-) Stridor, (-) Tracheal deviation Cardio: Rhythm regular, rate normal, Heart sounds normal; Intact distal pulses; The pedal pulses are 2+ and symmetric. Radial pulses are 2+ and symmetric. (-) Murmur Pulmonary/Chest wall: Effort normal. (-) Respiratory distress, (-) Wheezes, (-) Rales Abd: Soft, (-) tenderness, (-) Distension, (-) Guarding, (-) Rebound Musculoskeletal: (-) Edema Lymph: (-) Cervical adenopathy Neuro: Alert, Oriented x3 Psych: Mood and affect Normal Triage Information Reviewed: Yes Vital Signs On Initial Exam: Initial Vitals Temp Pulse Resp BP Pulse Ox 98.2 F 78 16 110/72 96 03/25/19 14:29 03/25/19 14:29 03/25/19 14:29 03/25/19 14:29 03/25/19 14:29 Vital Signs Reviewed: Yes Procedures - Sedation Patient Received Moderate/Deep Sedation with Procedure: No Diagnostics - Vital Signs Vital Signs Temp Pulse Resp BP Pulse Ox 03/25/19 14:29 98.2 F 78 16 110/72 96 - Laboratory Result Diagrams: 03/25/19 15:58 03/25/19 15:58 Lab Statement: Any lab studies that have been ordered have been reviewed, and results considered in the medical decision making process. Course/Dx - Course Course Of Treatment: This patient is a 18 year old F brought to [facility] by EMS with a chief complaint of episodic seizures since today 03/25/19 at 1400, per triage. Patient reports 3 seizure episodes occurring back to back with 2-3 min in between with the 1st lasting 3-4 minutes, the 2nd lasting 2 minutes, and the 3rd lasting 45 seconds. Pt reports currently feeling twitchy which is abnormal after seizures and her legs are tired and weak which always occurs. Pt denies nausea, vomiting, chills. Exam reveals no abnormalities. Lab tests show no abnormalities except for INR 1.19 H, Creatinine 0.97 H, Glucose 114 H. Pt was diagnosed with seizures. Dr. Shaver, neurologist, was consulted. He stated that the neurologist who sees the patient is currently working the patient up for seizures vs. pseudo-seizures. He does not feel the patient should have a change in medication at this time and agrees with OPD f/u. Pt will be discharged and follow up with Cathy Main, in 3 days as scheduled. - Differential Dx Differential Diagnoses Neuro: Positive: Seizure Disorder - pseudoseizure, electrolyte abnormality. - Diagnoses Provider Diagnoses: Seizure - Physician Notifications Discussed Care Of Patient With: Alejandro Shaver - neurology Time Discussed With Above Provider: 16:51 Instructed by Provider To: Other - thinks it may be psuedo-seizures but pt will follow up within 3 days Discharge ED - Sign-Out/Discharge Documenting (check all that apply): Patient Departure - discharge - Discharge Plan Condition: Stable Disposition: HOME Patient Education Materials: Epilepsy (ED) Print Language: CANADIAN Referrals: Antonella Winters NP [Primary Care Provider] - Additional Instructions: Follow-up with Neurology as scheduled. - Billing Disposition and Condition Condition: STABLE Disposition: Home - Attestation Statements Document Initiated by Scribe: Yes Documenting Scribe: Patricia Baires Provider For Whom Scribe is Documenting (Include Credential): Dr. Merry Dorantes MD Scribe Attestation: Patricia Granados, scribed for Dr. Merry Dorantes MD on 03/25/19 at 2123. Scribe Documentation Reviewed: Yes Provider Attestation: The documentation as recorded by the scribe, Patricia Baires accurately reflects the service I personally performed and the decisions made by me, Dr. Merry Dorantes MD Status of Scribe Document: Viewed
[2019-03-25 16:08] LABS: ABS Lymphocytes 1.1 10^3/ul (1.0-4.8); ABS Monocytes 0.4 10^3/ul (0-0.8); ABS Neutrophils 2.6 10^3/ul (1.5-7.7); Eosinophil % 0.9 %; Hematocrit 37 % (35-47); Hemoglobin 12.9 g/dL (12.0-16.0); Mean Corpuscular HGB Conc 35 g/dL (31-36); Mean Corpuscular Hemoglobin 29 pg (27-31); Mean Corpuscular Volume 85 fL (80-97); Nucleated Red Blood Cells % 0.1; Platelet Count 209 10^3/uL (150-450); Red Blood Count 4.39 10^6 /uL (3.70-4.87); Red Cell Distribution Width 14 % (10-15); White Blood Count 4.2 10^3/uL (3.5-10.8)
[2019-03-25 16:15] LABS: INR 1.19 (0.82-1.09)
[2019-03-25 16:24] LABS: ALT 11 U/L (7-52); AST 15 U/L (13-39); Albumin 4.5 g/dL (3.2-5.2); Albumin/Globulin Ratio 1.7 (1-3); Alkaline Phosphatase 61 U/L (34-104); Anion Gap 4 mmol/L (2-11); BUN/Creatinine Ratio 16.5 (8-20); Blood Urea Nitrogen 16 mg/dL (6-24); CO2 Carbon Dioxide 29 mmol/L (22-32); Chloride 105 mmol/L (101-111); EGFR African American 89.5 (>60); Globulin 2.6 g/dL (2-4); Glucose 114 mg/dL (70-100); Magnesium 2.1 mg/dL (1.9-2.7); Potassium 3.7 mmol/L (3.5-5.0); Sodium 138 mmol/L (135-145); Total Protein 7.1 g/dL (6.4-8.9)
[2019-03-25 16:30] LABS: HCG Pregnancy < 0.60 mIU/mL
[2019-03-25 17:16] VITALS: BP 112/73
== END 2019-03-25 17:13 | disposition home or self-care (01) ==
LOC: ED 14:27
DX: R56.9 Unspecified convulsions (principal); F41.9 Anxiety disorder, unspecified; Z79.899 Other long term (current) drug therapy
CPT/HCPCS: 36415; 80053; 83735; 84702; 85025; 85610; 99282

== ENCOUNTER 2019-04-03 14:23 | Emergency (ER) | payer BC ==
[2019-04-03] MEDS: Ammonia Inhalant* 1 EA AMP INH ONE (14:55)
[2019-04-03 15:00] LABS: ABS Eosinophils 0.1 10^3/ul (0-0.6); ABS Lymphocytes 1.3 10^3/ul (1.0-4.8); ABS Monocytes 0.4 10^3/ul (0-0.8); Eosinophil % 2.2 %; Hematocrit 36 % (35-47); Hemoglobin 12.1 g/dL (12.0-16.0); Lymphocyte % 26.8 %; Mean Corpuscular HGB Conc 34 g/dL (31-36); Mean Corpuscular Hemoglobin 29 pg (27-31); Mean Corpuscular Volume 86 fL (80-97); Mean Platelet Volume 8.2 fL (7.4-10.4); Platelet Count 181 10^3/uL (150-450); Red Blood Count 4.13 10^6 /uL (3.70-4.87); Red Cell Distribution Width 14 % (10-15); White Blood Count 4.9 10^3/uL (3.5-10.8)
[2019-04-03 15:17] LABS: INR 1.14 (0.82-1.09)
[2019-04-03 15:41] LABS: Albumin 4.3 g/dL (3.2-5.2); Albumin/Globulin Ratio 1.8 (1-3); Calcium 9.5 mg/dL (8.6-10.3); EGFR African American 95.2 (>60); EGFR Non-African American 78.6 (>60); Globulin 2.4 g/dL (2-4); Magnesium 2.1 mg/dL (1.9-2.7); Total Bilirubin 0.3 mg/dL (0.2-1.0); Total Protein 6.7 g/dL (6.4-8.9)
--- NOTE | 2019-04-03 15:42 | ED ---
Neurological HPI - HPI Summary HPI Summary: Patient is a 18 y/o F presenting to the ED via EMS for a chief complaint of seizure activity on 04/03/19. Patient admits dizziness and "feeling her eyes crossing" before having the seizure. She was in Hebrew class and had the seizure witnessed by several classmates. She does not recall having the seizure. She currently reports generalized body aches and fatigue. Patient denies any dietary changes, fever, chills, erythema of eyes, sore throat, CP, SOB, cough, abdominal pain, N/V, dysuria, hematuria, edema, or rash. She last ate a peanut butter and jelly sandwich for lunch around 12:30. Patient denies any aggravating or alleviating factors. For the last month, the patient has had several visits to [facility] for similar symptoms. She sees a neurologist, Bayron Najera NP, and had an EEG and Brain MRI performed with abnormal findings. She was told she needed to have a Brain CT. Patient has her next appointment with her neurologist in April. Patient denies changes in medications. PMHx is significant for insomnia for which she takes Clonazepam. Patient denies drug use, including marijuana. - History of Current Complaint Chief Complaint: EDSeizure Stated Complaint: SEIZURE PER EMS Time Seen by Provider: 04/03/19 14:27 Hx Obtained From: Patient Hx Last Menstrual Period: 01/24/19 Onset/Duration: Sudden Onset, Resolved Timing: Sudden Onset Onset Severity: Moderate Current Severity: Moderate Seizure Severity: Moderate Pain Intensity: 0 Pain Scale Used: 0-10 Numeric Character: Dizzy - Resolved, Visual Changes - "feeling her eyes crossing" Syncope Context: Witnessed Seizure Character: Generalized Aggravating: Nothing Alleviating: Nothing Associated Signs and Symptoms: Positive: Visual Changes - "feeling her eyes crossing", Loss of Consciousness, Dizziness, Seizure, Pain - Generalized body aches. Negative: Nausea/Vomiting, Fever, Chest Pain, Shortness of Breath - Allergy/Home Medications Allergies/Adverse Reactions: Allergies Allergy/AdvReac Type Severity Reaction Status Date / Time latex Allergy BURNING Verified 03/25/19 14:31 SENSATION zhou Allergy Anaphylatic Verified 03/25/19 14:31 Shock peach Allergy Anaphylatic Verified 03/25/19 14:31 Shock pineapple Allergy Anaphylatic Verified 03/25/19 14:31 Shock Home Medications: Home Medications FLUoxetine CAP* [PROzac CAP*] 20 mg PO DAILY 04/03/19 [History Confirmed ] FLUoxetine CAP* [PROzac CAP*] 40 mg PO DAILY 04/03/19 [History Confirmed ] Gabapentin TAB(NF) [Neurontin 600 mg TAB(NF)] 600 mg PO BEDTIME 04/03/19 [ History Confirmed 04/03/19] levETIRAcetam TAB* [Keppra TAB*] 1,000 mg PO BEDTIME 04/03/19 [History Confirmed 04/03/19] levETIRAcetam TAB* [Keppra TAB*] 500 mg PO QAM 04/03/19 [History Confirmed 04/03] PMH/Surg Hx/FS Hx/Imm Hx Previously Healthy: Yes Endocrine/Hematology History: Denies: Hx Diabetes Cardiovascular History: Denies: Hx Hypercholesterolemia, Hx Hypertension, Hx Pacemaker/ICD Respiratory History: Denies: Hx Asthma History: Sensory History: Denies: Hx Contacts or Glasses, Hx Legally Blind, Hx Deafness, Hx Hearing Aid Opthamlomology History: Denies: Hx Contacts or Glasses, Hx Legally Blind EENT History: Denies: Hx Deafness Neurological History: Reports: Hx Migraine Psychiatric History: Reports: Hx Anxiety - not formally diagnosed or treated, but pt states she has anxiety , Hx Panic Disorder - ANXIETY, Other Psychiatric Issues/Disorders - hx cutting in past, last in 2018; insomnia Denies: Hx Eating Disorder, Hx of Violent Episodes Against Others - Surgical History Surgical History: Yes Surgery Procedure, Year, and Place: LAZY EYE SURGERY CHILD Infectious Disease History: No Infectious Disease History: Denies: Traveled Outside the [place] in Last 30 Days - Family History Known Family History: Positive: Cardiac Disease, Other - no hx of suicide in "blood relatives",but uncle "not blood related" Negative: Seizure Disorder - Social History Occupation: Student Lives: Alone Alcohol Use: Occasionally Hx Substance Use: Yes Substance Use Type: Reports: Marijuana Hx Tobacco Use: No Smoking Status (MU): Never Smoked Tobacco Review of Systems Positive: Fatigue, Other - Negative dietary changes. Negative: Fever, Chills Positive: Other - Positive "feeling her eyes crossing". Negative: Erythema Negative: Sore Throat Negative: Chest Pain Negative: Shortness Of Breath, Cough Negative: Abdominal Pain, Vomiting, Nausea Negative: dysuria, hematuria Positive: Myalgia - Generalized body aches. Negative: Edema Negative: Rash Neurological: Other - Positive seizure activity and dizziness All Other Systems Reviewed And Are Negative: Yes Physical Exam - Summary Physical Exam Summary: Constitutional: Well-developed, Well-nourished, Alert. (-) Distressed Skin: Warm, Dry HENT: Normocephalic; Atraumatic. Eyes: Conjunctiva normal. Positive nystagmus, wide pupils. Neck: Musculoskeletal ROM normal neck. (-) JVD, (-) Stridor, (-) Tracheal deviation Cardio: Rhythm regular, rate normal, Heart sounds normal; Intact distal pulses; The pedal pulses are 2+ and symmetric. Radial pulses are 2+ and symmetric. (-) Murmur Pulmonary/Chest wall: Effort normal. (-) Respiratory distress, (-) Wheezes, (-) Rales Abd: Soft, (-) tenderness, (-) Distension, (-) Guarding, (-) Rebound Musculoskeletal: (-) Edema Lymph: (-) Cervical adenopathy Neuro: Alert, Oriented x3 Psych: Mood and affect Normal Triage Information Reviewed: Yes Vital Signs On Initial Exam: Initial Vitals Temp Pulse Resp BP Pulse Ox 97.5 F 70 16 103/64 100 04/03/19 14:31 04/03/19 14:31 04/03/19 14:31 04/03/19 14:31 04/03/19 14:31 Vital Signs Reviewed: Yes Procedures - Sedation Patient Received Moderate/Deep Sedation with Procedure: No Diagnostics - Vital Signs Vital Signs Temp Pulse Resp BP Pulse Ox 04/03/19 14:31 97.5 F 70 16 103/64 100 - Laboratory Lab Results: Lab Results 04/03/19 04/03/19 Range/Units 14:54 14:54 WBC 4.9 (3.5-10.8) 10^3/uL RBC 4.13 (3.70-4.87) 10^6 /uL Hgb 12.1 (12.0-16.0) g/dL Hct 36 (35-47) % MCV 86 (80-97) fL MCH 29 (27-31) pg MCHC 34 (31-36) g/dL RDW 14 (10-15) % Plt Count 181 (150-450) 10^3/uL MPV 8.2 (7.4-10.4) fL Neut % (Auto) 61.0 % Lymph % (Auto) 26.8 % Monroe % (Auto) 9.0 % Eos % (Auto) 2.2 % Baso % (Auto) 1.0 % Absolute Neuts (auto) 3.0 (1.5-7.7) 10^3/ul Absolute Lymphs (auto) 1.3 (1.0-4.8) 10^3/ul Absolute Monos (auto) 0.4 (0-0.8) 10^3/ul Absolute Eos (auto) 0.1 (0-0.6) 10^3/ul Absolute Basos (auto) 0.0 (0-0.2) 10^3/ul Absolute Nucleated RBC 0.0 10^3/ul Nucleated RBC % 0.0 INR (Anticoag Therapy) 1.14 H (0.82-1.09) Result Diagrams: 04/03/19 14:54 04/03/19 14:54 Lab Statement: Any lab studies that have been ordered have been reviewed, and results considered in the medical decision making process. - CT Maxillofacial CT CT Interpretation Completed By: Radiologist Summary of CT Findings: Maxillofacial CT IMPRESSION: No skull-based defect is identified. The ptotic appearing fusiform gyrus of the right temporal lobe is in close proximity to the foramen ovale. Reviewed by Dr. Judd. - EKG 15:15 Cardiac Rate: NL - 70 BPM EKG Rhythm: Sinus Rhythm ST Segment: Normal Ectopy: None Summary of EKG Findings: EKG at 15:15 shows 70 BPM with normal sinus rhythm, no STEMI. Reviewed and interpreted by Dr. Judd. NIH Scale - NIH Scale Level of Consciousness: Alert/Keenly Responsive Ask Patient the Month and His/Her Age: Both Correct Ask Pt to Open/Close Eyes and Certified Dialysis Technician/Release Non-Paretic Hand: Both Correctly Best Gaze (Only Horizontal Eye Movement): Normal Visual Field Testing: No Visual Loss Facial Paresis-Pt to Smile & Close Eyes or Grimace Symmetry: Normal/Symmetrical Motor Function - Right Arm: No Drift-Holds 10 Seconds Motor Function - Left Arm: No Drift-Holds 10 Seconds Motor Function - Right Leg: No Drift-Holds 10 Seconds Motor Function - Left Leg: No Drift-Holds 10 Seconds Limb Ataxia-Must be out of Proportion to Weakness Present: Absent Sensory (Use Pinprick to Test Arms/Legs/Trunk/Face): Normal Best Language (Describe Picture, Name Items): No Aphasia Dysarthria (Read Several Words): Normal Extinction and Inattention: No Abnormality Total Score: 0 Course/Dx - Course Course Of Treatment: Patient is a 18 y/o F presenting to the ED via EMS for a chief complaint of seizure activity on 04/03/19. Patient admits dizziness and "feeling her eyes crossing" before having the seizure. She was in Hebrew class and had the seizure witnessed by several classmates. She does not recall having the seizure. She currently reports generalized body aches and fatigue. Patient denies any dietary changes, fever, chills, erythema of eyes, sore throat, CP, SOB, cough, abdominal pain, N/V, dysuria, hematuria, edema, or rash. She last ate a peanut butter and jelly sandwich for lunch around 12:30. Patient denies any aggravating or alleviating factors. For the last month, the patient has had several visits to [facility] for similar symptoms. She sees a neurologist, Dr. Bayron Najera, and had an EEG and Brain MRI performed with abnormal findings. She was told she needed to have a Brain CT. Patient has her next appointment with her neurologist in April. Patient denies changes in medications. PMHx is significant for insomnia for which she takes Clonazepam. Patient denies drug use , including marijuana. On exam, nystagmus and wide pupils. In the ED course, patient was given ammonia 1 ea INH, macrodantin 100 mg PO, and Bactrim 1 tab PO. Laboratory abnormal findings: INR 1.14, BUN/Creatinine ratio 25.0, glucose 60, urine leukocyte esterase 2+, urine WBC 2+, urine squamous epith cells present, and urine glucose 2+. EKG at 15:15 shows 70 BPM with normal sinus rhythm, no STEMI. Maxillofacial CT IMPRESSION: No skull-based defect is identified. The ptotic appearing fusiform gyrus of the right temporal lobe is in close proximity to the foramen ovale. At 17:25, Dr. Reyes stated incidental findings. Patient will be discharged with a diagnosis of hypoglycemia and loss of consciousness. Follow up with Bayron Najera NP, within one week. - Diagnoses Provider Diagnoses: Hypoglycemia, Loss of consciousness - Physician Notifications Discussed Care Of Patient With: Peter Gross - At 17:25, Dr. Reyes stated incidental findings. Time Discussed With Above Provider: 17:25 Discharge ED - Sign-Out/Discharge Documenting (check all that apply): Patient Departure - Discharge - Discharge Plan Condition: Stable Disposition: HOME Prescriptions: Nitrofurantoin Monohyd/M-Cryst [Macrobid 100 mg Capsule] 100 mg PO BID #10 cap Patient Education Materials: Non-diabetic Hypoglycemia (ED) Referrals: Antonella Winters NP [Primary Care Provider] - Bayron Najera [Nurse Practitioner] - Additional Instructions: Eat at least 3 meals a day. Your CT scan performed today was normal. Urine cultures are pending. Follow up with Bayron Najera NP in one week. RETURN TO THE EMERGENCY DEPARTMENT FOR CHANGING OR WORSENING SYMPTOMS. - Attestation Statements Document Initiated by Scribe: Yes Documenting Scribe: Nicci New Provider For Whom Scribe is Documenting (Include Credential): David Judd MD Scribe Attestation: Nicci Granados, scribed for David Judd MD on 04/03/19 at 1733. Status of Scribe Document: Ready
[2019-04-03 16:53] LABS: Urine Appearance Cloudy; Urine Bilirubin Negative (Negative); Urine Blood Negative (Negative); Urine Color Yellow; Urine Glucose 2+(150 mg/dL) (Negative); Urine Ketones Negative (Negative); Urine Nitrite Negative (Negative); Urine Protein Negative (Negative); Urine Specific Gravity 1.027 (1.010-1.030); Urine Urobilinogen Negative (Negative)
[2019-04-03 16:57] LABS: Urine Bacteria Absent (Absent); Urine Red Blood Cell Absent (Absent); Urine Squamous Epithelial Cell Present (Absent); Urine White Blood Cell 2+(11-20/hpf) (Absent)
[2019-04-03] MEDS ORDERED: Sulfamethox/Trimethoprim DS 800/160* TAB PO ONE (17:05)
[2019-04-03] MEDS ORDERED: Nitrofurantoin Macrocrystals* 100 MG CAP PO ONE (17:09)
[2019-04-03 17:13] LABS: Urine Benzodiazepine Screen None Detected (None Detect); Urine Opiates Screen None Detected (None Detect)
[2019-04-03 17:42] VITALS: BP 111/62
== END 2019-04-03 17:35 | disposition home or self-care (01) ==
LOC: ED 14:23
DX: E16.2 Hypoglycemia, unspecified (principal); R55 Syncope and collapse; F41.9 Anxiety disorder, unspecified; Z79.899 Other long term (current) drug therapy; Z91.040 Latex allergy status
CPT/HCPCS: 36415; 70486; 80053; 80177; 80307; 81003; 81015; 83605; 83735; 85025; 85610; 87086; 93005; 99283; A9270-GY

== ENCOUNTER 2019-04-05 20:08 | Emergency (ER) | payer BC ==
[2019-04-05] MEDS ORDERED: Ammonia Inhalant* 1 EA AMP INH ONE (20:24)
[2019-04-05] MEDS ORDERED: NS 0.9% 1000 ML** 1,000 ML IV ONE (20:34)
--- NOTE | 2019-04-05 20:39 | ED ---
Neurological HPI - HPI Summary HPI Summary: The patient is a 18 y/o F arriving by ambulance to [facility] with a chief complaint of a seizure tonight. She reports that she was tired so she went to sleep and apparently had a seizure. She states weakness and lethargy now. She notes a history of seizures for which she takes 500mg Keppra in the morning, which she took, and 1000mg Keppra at night, which she has not taken yet. EMS notes that she is responsive to painful stimuli but continues to keep her eyes close and respond verbally. She sees Bayron Najera NP, from neurology, and she has an appointment in April. She denies any drug use. PMHx: migraine, anxiety, depression. Nonsmoker, no EtOH, no substance use. Medications reviewed. Allergies noted. - History of Current Complaint Chief Complaint: EDPsychosocial Stated Complaint: SEIZURE PER EMS Hx Obtained From: Patient - poor historian, EMS Hx Last Menstrual Period: 01/24/19 Onset/Duration: Started minutes ago, Resolved Timing: Sudden Onset Onset Severity: Moderate Current Severity: None Seizure Severity: Self Limited Number of Seizures: 1 Pain Intensity: 0 Pain Scale Used: 0-10 Numeric Character: Weak, Lethargy Aggravating: Unknown Alleviating: Unknown - Allergy/Home Medications Allergies/Adverse Reactions: Allergies Allergy/AdvReac Type Severity Reaction Status Date / Time latex Allergy BURNING Verified 04/05/19 20:13 SENSATION zhou Allergy Anaphylatic Verified 04/05/19 20:13 Shock peach Allergy Anaphylatic Verified 04/05/19 20:13 Shock pineapple Allergy Anaphylatic Verified 04/05/19 20:13 Shock PMH/Surg Hx/FS Hx/Imm Hx Endocrine/Hematology History: Denies: Hx Diabetes Cardiovascular History: Denies: Hx Hypercholesterolemia, Hx Hypertension, Hx Pacemaker/ICD Respiratory History: Denies: Hx Asthma History: Sensory History: Denies: Hx Contacts or Glasses, Hx Legally Blind, Hx Deafness, Hx Hearing Aid Opthamlomology History: Denies: Hx Contacts or Glasses, Hx Legally Blind Neurological History: Reports: Hx Migraine, Hx Seizures Psychiatric History: Reports: Hx Anxiety - not formally diagnosed or treated, but pt states she has anxiety , Hx Panic Disorder - ANXIETY, Other Psychiatric Issues/Disorders - hx cutting in past, last in 2017; insomnia Denies: Hx Eating Disorder, Hx of Violent Episodes Against Others - Surgical History Surgical History: Yes Surgery Procedure, Year, and Place: LAZY EYE SURGERY CHILD Infectious Disease History: No Infectious Disease History: Denies: Traveled Outside the [place] in Last 30 Days - Family History Known Family History: Positive: Cardiac Disease, Other - no hx of suicide in "blood relatives",but uncle "not blood related" Negative: Seizure Disorder - Social History Alcohol Use: Occasionally Hx Substance Use: Yes Substance Use Type: Reports: Marijuana Hx Tobacco Use: No Smoking Status (MU): Never Smoked Tobacco Review of Systems Positive: Other - lethargic Neurological: Other - seizure Positive: Weakness All Other Systems Reviewed And Are Negative: Yes Physical Exam - Summary Physical Exam Summary: VITAL SIGNS: Reviewed. GENERAL: Patient is a well-developed and nourished female who is lying comfortable in the stretcher. Patient is not in any acute respiratory distress. Lethargic. She was woken up with ammonia and able to provide history as she is alert and oriented. HEAD AND FACE: No signs of trauma. No ecchymosis, hematomas or skull depressions. No sinus tenderness. EYES: PERRLA, EOMI x 2, No injected conjunctiva, no nystagmus. No photophobia. EARS: Hearing grossly intact. Ear canals and tympanic membranes are within normal limits. MOUTH: Oropharynx within normal limits. NECK: Supple, trachea is midline, no adenopathy, no JVD, no carotid bruit, no c- spine tenderness, neck with full ROM. No meningeal signs, no Kernig's or brudzinskis signs. CHEST: Symmetric, no tenderness at palpation. LUNGS: Clear to auscultation bilaterally. No wheezing or crackles. CVS: Regular rate and rhythm, S1 and S2 present, no murmurs or gallops appreciated. ABDOMEN: Soft, non-tender. No signs of distention. No rebound, no guarding, and no masses palpated. Bowel sounds are normal. EXTREMITIES: FROM in all major joints, no edema, no cyanosis or clubbing. NEURO: Alert and oriented x 3. No acute neurological deficits. Speech is normal and follows commands. SKIN: Dry and warm. Triage Information Reviewed: Yes Vital Signs On Initial Exam: Initial Vitals Temp Pulse Resp BP Pulse Ox 99.0 F 77 18 106/76 100 04/05/19 20:09 04/05/19 20:09 04/05/19 20:09 04/05/19 20:09 04/05/19 20:09 Vital Signs Reviewed: Yes Procedures - Sedation Patient Received Moderate/Deep Sedation with Procedure: No Diagnostics - Vital Signs Vital Signs Temp Pulse Resp BP Pulse Ox 04/05/19 20:09 99.0 F 77 18 106/76 100 - Laboratory Result Diagrams: 04/05/19 21:11 04/05/19 21:11 Lab Statement: Any lab studies that have been ordered have been reviewed, and results considered in the medical decision making process. - Radiology Chest X-Ray Radiology Interpretation Completed By: ED Physician Summary of Radiographic Findings: No acute pathology. ED physician has reviewed and interpreted this imaging report. Pending official read. - EKG 2130 Cardiac Rate: NL - 69 BPM EKG Rhythm: Sinus Rhythm Summary of EKG Findings: EKG at 2130 reveals normal sinus rhythm at 69 BPM. Q- waves in II, III, and aVF. No ST elevations. ED physician has reviewed and interpreted this EKG. Re-Evaluation - Re-Evaluation First Eval Re-Evaluation Time: 21:50 Change: Improved Comment: She is alert and oriented. I counseled her on returning to the ED if she has any thoughts or plans of harming herself. We discussed plan for discharge. Course/Dx - Course Assessment/Plan: This is a 18-year-old female who presents to the emergency department with a chief complaint of having a seizure. The seizure was not witnessed, and the patient doesnt remember anything. Therefore unable to obtain any history. The patient reports that she lives with roommates and they called an ambulance when she thinks seizure. The patient was lethargic in the stretcher. We used an ammonia treatment, and the patient woke up right away. The patient reports that she has a history of seizures for which she takes Keppra 500 mg in the morning and 1000 mg at nighttime. She also takes Klonopin and Imitrex for headaches. The patient is hemodynamically stable. Blood tests without any significant abnormality. At this time, I discussed my physical exam and findings with Dr. Gomez from neurology, and he recommends for the patient to be discharged home with increasing the Keppra from 500 mg in the morning to 750 mg. She will continue to take 1000 mg of Keppra at nighttime. At this time, the patient is hemodynamically stable, and she is alert and oriented 3. Patient is neurological intact. The patient was ambulated with a steady walk. Patient was counseled about returning to the emergency department if she develops any thoughts of harming herself or she has any suicidal ideation. The patient understands and agrees. - Differential Dx Differential Diagnoses Neuro: Positive: Postical, Seizure Disorder - Diagnoses Provider Diagnoses: Seizure - Physician Notifications Discussed Care Of Patient With: Vinh Gomez - neurology Time Discussed With Above Provider: 21:45 Instructed by Provider To: Other - I discussed the patient's case with Dr. Gomez , and he recommends increasing the morning dose of Keppra to 750mg and continuing taking dose of 1000mg at night. She should call on 04/07/19 to schedule an appointment. Discharge ED - Sign-Out/Discharge Documenting (check all that apply): Patient Departure - Patient will be discharged home. - Discharge Plan Condition: Stable Disposition: HOME Prescriptions: levETIRAcetam [Keppra 250] 250 mg PO DAILY #30 tab Patient Education Materials: Recurrent Seizures in Adults (ED) Referrals: Antonella Winters NP [Primary Care Provider] - 3 Days Vinh Gomez MD [Medical Doctor] - 04/07/19 Additional Instructions: Increase your morning dose of Keppra to 750mg and keep your night dose at 1000mg. Follow up with neurology on Sunday to schedule an appointment. Follow up with your primary care provider in 2-3 days. Return to the emergency department for any new or worsening symptoms. - Billing Disposition and Condition Condition: STABLE Disposition: Home - Attestation Statements Document Initiated by Javy: Yes Documenting Scribe: Suzy Cannon Provider For Whom Javy is Documenting (Include Credential): MD Brandon Ibrahimibe Attestation: Suzy Granados scribed for Dr. Edson Paz MD on 04/06/19 at 1147. Scribe Documentation Reviewed: Yes Provider Attestation: The documentation as recorded by the Suzy fitzpatrick accurately reflects the service I personally performed and the decisions made by me, Dr. Edson Paz MD Status of Scribe Document: Viewed
[2019-04-05 21:19] LABS: ABS Eosinophils 0.1 10^3/ul (0-0.6); ABS Lymphocytes 1.8 10^3/ul (1.0-4.8); ABS Monocytes 0.3 10^3/ul (0-0.8); ABS Neutrophils 2.7 10^3/ul (1.5-7.7); Eosinophil % 2.3 %; Hematocrit 38 % (35-47); Hemoglobin 12.8 g/dL (12.0-16.0); Lymphocyte % 36.2 %; Mean Corpuscular HGB Conc 33 g/dL (31-36); Mean Corpuscular Hemoglobin 29 pg (27-31); Mean Corpuscular Volume 86 fL (80-97); Mean Platelet Volume 8.6 fL (7.4-10.4); Platelet Count 195 10^3/uL (150-450); Red Blood Count 4.42 10^6 /uL (3.70-4.87); Red Cell Distribution Width 14 % (10-15)
[2019-04-05 21:24] LABS: INR 1.03 (0.82-1.09)
[2019-04-05 21:32] LABS: Albumin 4.4 g/dL (3.2-5.2); Anion Gap 4 mmol/L (2-11); CO2 Carbon Dioxide 25 mmol/L (22-32); Calcium 9.5 mg/dL (8.6-10.3); Chloride 107 mmol/L (101-111); Magnesium 2.1 mg/dL (1.9-2.7); Potassium 3.5 mmol/L (3.5-5.0); Sodium 136 mmol/L (135-145)
[2019-04-05 21:38] LABS: ALT 11 U/L (7-52); AST 15 U/L (13-39); Albumin/Globulin Ratio 1.8 (1-3); Alkaline Phosphatase 56 U/L (34-104); BUN/Creatinine Ratio 22.7 (8-20); Blood Urea Nitrogen 20 mg/dL (6-24); EGFR African American 100.2 (>60); EGFR Non-African American 82.8 (>60); Globulin 2.4 g/dL (2-4); Glucose 87 mg/dL (70-100); Total Protein 6.8 g/dL (6.4-8.9)
[2019-04-05 22:08] LABS: Urine Appearance Cloudy; Urine Bilirubin Negative (Negative); Urine Blood Negative (Negative); Urine Color Yellow; Urine Glucose Negative (Negative); Urine Ketones Negative (Negative); Urine Nitrite Negative (Negative); Urine Protein Negative (Negative); Urine Specific Gravity 1.019 (1.010-1.030); Urine Urobilinogen Negative (Negative)
[2019-04-05 22:12] LABS: Alcohol < 10 mg/dL (<10)
[2019-04-05 22:14] LABS: Urine Bacteria 1+ (Absent); Urine Red Blood Cell Trace(0-2/hpf) (Absent); Urine Squamous Epithelial Cell Present (Absent); Urine White Blood Cell 3+(>20/hpf) (Absent)
[2019-04-05 22:20] VITALS: BP 107/69
[2019-04-05 22:23] LABS: TSH (Thyroid Stimulating Horm) 1.48 mcIU/mL (0.34-5.60)
[2019-04-05 22:38] LABS: Urine Benzodiazepine Screen None Detected (None Detect); Urine Opiates Screen None Detected (None Detect)
== END 2019-04-05 22:20 | disposition home or self-care (01) ==
LOC: ED 20:08
DX: G40.909 Epilepsy, unspecified, not intractable, without status epilepticus (principal); R53.1 Weakness; F41.9 Anxiety disorder, unspecified
CPT/HCPCS: 36415; 71045; 80053; 80177; 80307; 80320; 81003; 81015; 83605; 83735; 84443; 85025; 85610; 87086; 93005; 99283; A9270-GY; G0480

== ENCOUNTER 2019-04-07 12:01 | Emergency (ER) | payer BC ==
--- NOTE | 2019-04-07 12:19 | ED ---
Neurological HPI - HPI Summary HPI Summary: This pt is a 18 y/o female, with hx of seizures, presenting to [facility] via EMS for a seizure today. Pt reports she was in class today around 11:00 when she felt "something coming" but unable to describe it exactly. She states the next thing she knows she had paramedics around her and she told them she did not want to come to the ED again. EMS placed the pt on a 9.41 and brought her to the ED. Pt does not remember the seizure or know how long it lasted. Pt currently denies SI or HI. Pt recently seen on 04/05/19 and was advised to increase her Keppra to 750 mg in the morning and keep Keppra 1000 mg at night, which she has been doing. Pt also called neurology today to make an appointment (as recommended) but they couldn't fit her into their schedule any time sooner. Pt lives with roommates. She attends [facility]. Pt sees therapy at [facility]. - History of Current Complaint Stated Complaint: SEIZLURE /941 Time Seen by Provider: 04/07/19 12:12 Hx Obtained From: Patient Hx Last Menstrual Period: 01/24/19 Onset/Duration: Sudden Onset Timing: Sudden Onset Character: Other: - seizure Syncope Context: Witnessed Aggravating: Nothing Alleviating: Nothing Associated Signs and Symptoms: Positive: Seizure. Negative: Fever - Allergy/Home Medications Allergies/Adverse Reactions: Allergies Allergy/AdvReac Type Severity Reaction Status Date / Time latex Allergy BURNING Verified 04/05/19 20:13 SENSATION zhou Allergy Anaphylatic Verified 04/05/19 20:13 Shock peach Allergy Anaphylatic Verified 04/05/19 20:13 Shock pineapple Allergy Anaphylatic Verified 04/05/19 20:13 Shock PMH/Surg Hx/FS Hx/Imm Hx Endocrine/Hematology History: Denies: Hx Diabetes Cardiovascular History: Denies: Hx Hypercholesterolemia, Hx Hypertension, Hx Pacemaker/ICD Respiratory History: Denies: Hx Asthma History: Sensory History: Denies: Hx Contacts or Glasses, Hx Legally Blind, Hx Deafness, Hx Hearing Aid Opthamlomology History: Denies: Hx Contacts or Glasses, Hx Legally Blind Neurological History: Reports: Hx Migraine, Hx Seizures Psychiatric History: Reports: Hx Anxiety - not formally diagnosed or treated, but pt states she has anxiety , Hx Panic Disorder - ANXIETY, Other Psychiatric Issues/Disorders - hx cutting in past, last in 2018; insomnia Denies: Hx Eating Disorder, Hx of Violent Episodes Against Others - Surgical History Surgical History: Yes Surgery Procedure, Year, and Place: LAZY EYE SURGERY CHILD Infectious Disease History: Denies: Traveled Outside the [place] in Last 30 Days - Family History Known Family History: Positive: Cardiac Disease, Other - no hx of suicide in "blood relatives",but uncle "not blood related" Negative: Seizure Disorder - Social History Alcohol Use: Occasionally Hx Substance Use: Yes Substance Use Type: Reports: Marijuana Hx Tobacco Use: No Smoking Status (MU): Never Smoked Tobacco Review of Systems Negative: Fever Neurological: Other - POSITIVE: seizure Negative: Other - NEGATIVE: SI or HI All Other Systems Reviewed And Are Negative: Yes Physical Exam - Summary Physical Exam Summary: GENERAL: Patient is a well-developed and nourished female who is lying comfortable in the stretcher. Patient is not in any acute respiratory distress. HEAD AND FACE: No signs of trauma. No ecchymosis, hematomas or skull depressions. No sinus tenderness. EYES: PERRLA, EOMI x 2, No injected conjunctiva, no nystagmus. EARS: Hearing grossly intact. Ear canals and tympanic membranes are within normal limits. MOUTH: Oropharynx within normal limits. NECK: Supple, trachea is midline, no adenopathy, no JVD, no carotid bruit, no c- spine tenderness, neck with full ROM. CHEST: Symmetric, no tenderness at palpation LUNGS: Clear to auscultation bilaterally. No wheezing or crackles. CVS: Regular rate and rhythm, S1 and S2 present, no murmurs or gallops appreciated. ABDOMEN: Soft, non-tender. No signs of distention. No rebound no guarding, and no masses palpated. Bowel sounds are normal. EXTREMITIES: FROM in all major joints, no edema, no cyanosis or clubbing. NEURO: Alert and oriented x 3. No acute neurological deficits. Speech is normal and follows commands. SKIN: Dry and warm PSYCH: Denies SI or HI. Triage Information Reviewed: Yes Vital Signs On Initial Exam: Initial Vitals Temp Pulse Resp BP Pulse Ox 98.3 F 70 16 106/76 97 04/07/19 12:11 04/07/19 12:11 04/07/19 12:11 04/07/19 12:11 04/07/19 12:11 Vital Signs Reviewed: Yes Procedures - Sedation Patient Received Moderate/Deep Sedation with Procedure: No Diagnostics - Laboratory Result Diagrams: 04/07/19 12:43 04/07/19 12:43 Lab Statement: Any lab studies that have been ordered have been reviewed, and results considered in the medical decision making process. - EKG 12:58 Cardiac Rate: NL - at 70 bpm EKG Rhythm: Sinus Rhythm Summary of EKG Findings: EKG at 1258 shows normal sinus rhythm at a rate of [address] elevations. Normal axis. Re-Evaluation - Re-Evaluation First Eval Re-Evaluation Time: 13:46 Comment: Reviewed results and Dr. Shaver's recommendations with pt. She will be discharged home. Course/Dx - Course Assessment/Plan: This patient is a 18-year-old female who presents to the emergency department with a chief complaint of having a seizure. She doesnt remember having the seizure, she reports that she felt warm and then she went into the hallway and apparently the patient had a tonic-clonic seizure. EMS brought her into the emergency department for further workup and management. The patient denies any suicidal or homicidal ideation. I discussed my physical exam and findings with Dr. Shaver from neurology and he revealed her last EEG was also normal. Therefore, he recommends for the patient to take Keppra 1000 mg twice a day and follow-up with Dr. Gomez. At this point, I discussed all the findings and test results with the patient. Patient was instructed to return to the emergency room immediately if any of the symptoms return or worsen. Patient understands and agrees. Neurological exam before discharge: Patient is alert and oriented x 3. No acute neurological deficits. Patient's vital signs are stable. Patient is to follow up with her PCP in the next 2 3 days. She understands and agrees. Plan of care was discussed with the patient and patient understands and agrees with the plan of care. All questions were answered at patient satisfaction. There were no further complaints or concerns. - Differential Dx Differential Diagnoses Neuro: Positive: Hypoxia, Medication Reaction, Metabolic Abnormality, Seizure Disorder - Diagnoses Provider Diagnoses: Seizure - Physician Notifications Discussed Care Of Patient With: Alejandro Shaver Time Discussed With Above Provider: 12:20 Instructed by Provider To: Other - Discussed the case with Dr. Shaver, neurologist, who recommends discharging the pt home and following up with Dr. Gomez. He also recommends to increase Keppra to 1000 mg BID. Discharge ED - Sign-Out/Discharge Documenting (check all that apply): Patient Departure - Discharge home - Discharge Plan Condition: Stable Disposition: HOME Patient Education Materials: Recurrent Seizures in Adults (ED) Referrals: Antonella Winters NP [Primary Care Provider] - Vinh Gomez MD [Medical Doctor] - Additional Instructions: Increase your Keppra dose to 1000 mg twice a day. Follow up with Dr. Gomez, neurologist. RETURN TO THE EMERGENCY DEPARTMENT FOR ANY WORSENING OR NEW SYMPTOMS. - Billing Disposition and Condition Condition: STABLE Disposition: Home - Attestation Statements Document Initiated by Scribe: Yes Documenting Scribe: Jigna Gomez Provider For Whom Javy is Documenting (Include Credential): Edson Paz MD Scribe Attestation: Jigna Granados, scribed for Edson Paz MD on 04/08/19 at 0814. Scribe Documentation Reviewed: Yes Provider Attestation: The documentation as recorded by the Jigna fitzpatrick accurately reflects the service I personally performed and the decisions made by , Edson Paz MD Status of Scribe Document: Viewed
[2019-04-07 12:52] LABS: ABS Basophils 0.1 10^3/ul (0-0.2); ABS Eosinophils 0.1 10^3/ul (0-0.6); ABS Lymphocytes 1.1 10^3/ul (1.0-4.8); ABS Monocytes 0.3 10^3/ul (0-0.8); ABS Neutrophils 3.8 10^3/ul (1.5-7.7); Hematocrit 37 % (35-47); Hemoglobin 12.3 g/dL (12.0-16.0); Lymphocyte % 20.4 %; Mean Corpuscular HGB Conc 34 g/dL (31-36); Mean Corpuscular Hemoglobin 29 pg (27-31); Mean Corpuscular Volume 86 fL (80-97); Mean Platelet Volume 8.6 fL (7.4-10.4); Platelet Count 193 10^3/uL (150-450); Red Blood Count 4.26 10^6 /uL (3.70-4.87); Red Cell Distribution Width 14 % (10-15); White Blood Count 5.4 10^3/uL (3.5-10.8)
[2019-04-07 13:01] LABS: INR 1.07 (0.82-1.09)
[2019-04-07 13:05] LABS: Albumin 4.4 g/dL (3.2-5.2); Calcium 9.8 mg/dL (8.6-10.3); Total Bilirubin 0.3 mg/dL (0.2-1.0)
[2019-04-07 13:11] LABS: Albumin/Globulin Ratio 1.8 (1-3); BUN/Creatinine Ratio 27.3 (8-20); EGFR African American 116.8 (>60); EGFR Non-African American 96.6 (>60); Globulin 2.5 g/dL (2-4); Total Protein 6.9 g/dL (6.4-8.9)
[2019-04-07 14:02] VITALS: BP 106/69
== END 2019-04-07 14:01 | disposition home or self-care (01) ==
LOC: ED 12:01
DX: G40.909 Epilepsy, unspecified, not intractable, without status epilepticus (principal); Z79.899 Other long term (current) drug therapy
CPT/HCPCS: 36415; 80053; 83605; 83735; 85025; 85610; 93005; 99282